=== PATIENT | female | born 1945 | race Caucasian/White ===

== ENCOUNTER 2016-11-27 10:46 | Outpatient (CLI) | payer MEDICARE, OTHER ==
[2016-11-27 11:20] LABS: ALBUMIN/GLOBULIN RATIO 1.5 (1.0-2.2); BILIRUBIN,TOTAL 0.7 mg/dL (0.2-1.0); CALCIUM 9.2 mg/dL (8.5-10.3); CREATININE 0.7 mg/dL (0.4-1.0); POTASSIUM 3.7 mmol/L (3.5-5.0); TOTAL PROTEIN 7.6 g/dL (6.7-8.2)
[2016-11-27 11:25] LABS: EOSINOPHILS # (AUTO) 0.1 10^3/uL (0.0-0.7); EOSINOPHILS % (AUTO) 1.1 %; HCT - HEMATOCRIT 45.4 % (37.0-47.0); HGB - HEMOGLOBIN 15.2 g/dL (12.0-16.0); LYMPHOCYTES # (AUTO) 1.6 10^3/uL (1.5-3.5); MEAN CORPUSCULAR HEMOGLOBIN 30.6 pg (27.0-31.0); MEAN CORPUSCULAR HGB CONC 33.4 g/dL (32.0-36.0); MEAN CORPUSCULAR VOLUME 91.5 fL (81.0-99.0); MEAN PLATELET VOLUME 8.1 fL (7.9-10.8); MONOCYTES # (AUTO) 0.4 10^3/uL (0.0-1.0); MONOCYTES % (AUTO) 8.6 %; NEUTROPHILS # (AUTO) 2.7 10^3/uL (1.5-6.6); NEUTROPHILS % (AUTO) 56.3 %; RED BLOOD COUNT 4.95 10^6/uL (4.20-5.40); UNCORRECTED WHITE BLOOD COUNT 4.8 x10^3/uL; WHITE BLOOD COUNT 4.8 x10^3/uL (4.8-10.8)
== END 2016-11-27 10:47 | disposition home or self-care (01) ==
LOC: LAB 10:46
PROVIDERS: ATTEND Podiatrist Foot & Ankle Surgery
DX: Z01.818 Encounter for other preprocedural examination (principal); T84.21 Breakdown (mechanical) of internal fixation device of other bones
CPT/HCPCS: 36415; 80053; 82465; 85025; 93005

== ENCOUNTER 2016-12-30 08:00 | Outpatient (CLI) | payer MEDICARE, OTHER | END 2016-12-30 23:59 | disposition home or self-care (01) | LOC: LAB.R 08:00 | PROVIDERS: ATTEND Nurse Practitioner Primary Care | DX: N30.00 Acute cystitis without hematuria (principal) | CPT/HCPCS: 87077; 87086 ==

== ENCOUNTER 2017-01-25 11:03 | Outpatient (CLI) | payer MEDICARE, OTHER | END 2017-01-25 11:04 | disposition home or self-care (01) | LOC: LAB 11:03 | PROVIDERS: ATTEND Internal Medicine | DX: N30.00 Acute cystitis without hematuria (principal) | CPT/HCPCS: 87086 ==

== ENCOUNTER 2017-02-09 19:49 | Outpatient (CLI) | payer MEDICARE, OTHER ==
[2017-02-09 18:56] LABS: BILIRUBIN,URINE NEGATIVE (NEGATIVE); PH,URINE 7.5 PH (5.0-7.5)
[2017-02-09 18:57] LABS: UA CHARGE (STRIP ONLY) YES; UR CULTURE IF IND NOT INDICATED
== END 2017-02-09 19:50 | disposition home or self-care (01) ==
LOC: LAB.R 19:49
PROVIDERS: ATTEND Internal Medicine
DX: N30.00 Acute cystitis without hematuria (principal)
CPT/HCPCS: 81001; 81003; 87086

== ENCOUNTER 2017-05-11 14:51 | Outpatient (CLI) | payer MEDICARE, OTHER ==
--- NOTE | 2017-05-12 08:46 | DEXA Report ---
DEXA: 05/11/2017 CLINICAL INDICATION: Postmenopausal. TECHNIQUE: Dual energy x-ray absorptiometry (DXA) was performed on a [employer] system. Regions measured are the AP spine, femoral neck, and, if needed, forearm. COMPARISON: None. In accordance with the International Society for Clinical Densitometry (ISCD) guidelines, data from previous exams may be reanalyzed using current recommendations and techniques. This is done to allow a more accurate basis for comparison with the current study. FINDINGS LUMBAR SPINE DATA: REGION BMD (g/cm/cm) T-SCORE Z-SCORE L1 1.142 0.1 2.2 L2 1.139 -0.5 1.6 L3 1.235 0.3 2.4 L4 1.157 -0.4 1.7 TOTAL L1-L4 1.174 -0.1 2.0 NOTE: All evaluable vertebrae are used for classification. HIP DATA: REGION BMD (g/cm/cm) T-SCORE Z-SCORE Neck 0.925 -0.8 1.1 TOTAL 0.862 -1.2 0.6 NOTE: The femoral neck or total proximal femur, whichever is lowest, is used for classification. IMPRESSION THE WHO CLASSIFICATION BASED ON THE INTERNATIONAL REFERENCE STANDARD: OSTEOPENIA. FRACTURE RISK: INCREASED. RECOMMENDATION: Patients with diagnosis of osteoporosis or osteopenia should have regular bone mineral density assessment. For those eligible for Medicare, routine testing is allowed once every 2 years. Testing frequency can be increased for patients who have rapidly progressing disease or for those who are receiving medical therapy to restore bone mass. COMMENT: World Health Organization (WHO) definitions for osteoporosis and osteopenia: NORMAL BMD: T-score at -1.0 or higher, fracture risk is low. OSTEOPENIA BMD: T-score between -1.0 and -2.5, fracture risk is increased. OSTEOPOROSIS BMD: T-score at -2.5 or lower, fracture risk high. National Osteoporosis Foundation recommends: 1. Obtain adequate dietary calcium (at least 1200 mg per day) and vitamin D (400 -800 international units per day). 2. Participate, as appropriate, in regular weightbearing and muscle- strengthening exercise. 3. Avoid tobacco use and reduce alcohol and caffeine intake. 4. For more detailed information see the website at www.NOF.org. MTDD
== END 2017-05-11 14:52 | disposition home or self-care (01) ==
LOC: DI 14:51
PROVIDERS: ATTEND Physician Assistant Medical
DX: M85.88 Other specified disorders of bone density and structure, other site (principal)
CPT/HCPCS: 77080

== ENCOUNTER 2017-05-11 14:53 | Outpatient (CLI) | payer MEDICARE, OTHER ==
--- NOTE | 2017-05-12 14:12 | Mammography Report ---
DIGITAL SCREENING MAMMOGRAM: 05/11/2017 CLINICAL INDICATION: A 72-year-old nulliparous patient with family history of breast cancer, history of benign biopsies, for screening. COMPARISON: 04/2016, 04/2015, 04/2014, 04/2013, 03/2012, 04/2011. TECHNIQUE: Routine CC and MLO projections were obtained of the breasts. FINDINGS: The breasts again demonstrate heterogeneously dense fibroglandular parenchyma bilaterally. Postbiopsy changes are stable. Coarse and punctate, typically benign calcifications are present. No suspicious masses, clustered microcalcifications, or regions of architectural distortion are identifi ed. IMPRESSION: BENIGN FINDINGS. RECOMMENDATION: ROUTINE ANNUAL SCREENING UNLESS OTHERWISE CLINICALLY INDICATED. BIRADS CATEGORY 2-BENIGN FINDINGS. STANDARD QUALIFYING STATEMENTS 1. This examination was reviewed with the aid of Computer-Aided Detection (CAD). 2. A negative or benign imaging report should not delay biopsy if clinically suspicious findings are present. Consider surgical consultation if warranted. More than 5% of cancers are not identified by i maging. 3. Dense breasts may obscure an underlying neoplasm. JOB #: [id number] EXT JOB #:[id number]
== END 2017-05-11 14:54 | disposition home or self-care (01) ==
LOC: DI 14:53
PROVIDERS: ATTEND Physician Assistant Medical
DX: Z12.31 Encounter for screening mammogram for malignant neoplasm of breast (principal); Z80.3 Family history of malignant neoplasm of breast
CPT/HCPCS: 77067

== ENCOUNTER 2017-11-01 11:10 | Outpatient (CLI) | payer MEDICARE, OTHER | END 2017-11-01 11:11 | disposition home or self-care (01) | LOC: LAB.R 11:10 | PROVIDERS: ATTEND Physician Assistant Medical | DX: N30.00 Acute cystitis without hematuria (principal) | CPT/HCPCS: 87086; 87181 ==

== ENCOUNTER 2017-11-08 10:22 | Outpatient (CLI) | payer MEDICARE, OTHER ==
[2017-11-08 11:40] LABS: BASOPHILS % (AUTO) 0.8 %; EOSINOPHILS # (AUTO) 0.1 10^3/uL (0.0-0.7); EOSINOPHILS % (AUTO) 1.2 %; HGB - HEMOGLOBIN 14.7 g/dL (12.0-16.0); LYMPHOCYTES # (AUTO) 1.6 10^3/uL (1.5-3.5); LYMPHOCYTES % (AUTO) 35.6 %; MEAN CORPUSCULAR HEMOGLOBIN 30.9 pg (27.0-31.0); MEAN PLATELET VOLUME 7.8 fL (7.9-10.8); MONOCYTES # (AUTO) 0.4 10^3/uL (0.0-1.0); MONOCYTES % (AUTO) 8.6 %; NEUTROPHILS # (AUTO) 2.4 10^3/uL (1.5-6.6); NEUTROPHILS % (AUTO) 53.8 %; PLT - PLATELET COUNT 296 10^3/uL (130-450); RED BLOOD COUNT 4.76 10^6/uL (4.20-5.40); RED CELL DISTRIBUTION WIDTH 13.4 % (12.0-15.0); WHITE BLOOD COUNT 4.4 x10^3/uL (4.8-10.8)
[2017-11-08 11:55] LABS: ALBUMIN 4.6 g/dL (3.2-5.5); ALBUMIN/GLOBULIN RATIO 1.5 (1.0-2.2); ALKALINE PHOSPHATASE 44 IU/L (42-121); ALT ALANINE AMINOTRANSFERASE 44 IU/L (10-60); AST ASPARTATE AMINOTRANSFERASE 38 IU/L (10-42); BILIRUBIN,TOTAL 0.8 mg/dL (0.2-1.0); BUN - BLOOD UREA NITROGEN 23 mg/dL (6-20); CARBON DIOXIDE - CO2 28 mmol/L (21-32); CHLORIDE 96 mmol/L (101-111); CHOL/HDL RATIO 2.6 (<4.4); CHOLESTEROL 190 mg/dL; CREATININE 0.5 mg/dL (0.4-1.0); GFR - MDRD 122 (>89); GLUCOSE 89 mg/dL (70-100); HDL CHOLESTEROL 73 mg/dL; LDL CHOLESTEROL,CALCULATED 102 mg/dL; LDL/HDL RATIO 1.4 (<4.4); SODIUM 134 mmol/L (135-145); TOTAL PROTEIN 7.6 g/dL (6.7-8.2); VLDL CHOLESTEROL 15 mg/dL
== END 2017-11-08 10:23 | disposition home or self-care (01) ==
LOC: LAB 10:22
PROVIDERS: ATTEND Physician Assistant Medical
DX: I10 Essential (primary) hypertension (principal); Z79.899 Other long term (current) drug therapy; F41.9 Anxiety disorder, unspecified; E78.2 Mixed hyperlipidemia
CPT/HCPCS: 36415; 80053; 80061; 82306; 83721; 84443; 85025

== ENCOUNTER 2017-11-18 11:06 | Outpatient (CLI) | payer MEDICARE, OTHER ==
[2017-11-18 11:49] LABS: BASOPHILS % (AUTO) 0.2 %; EOSINOPHILS % (AUTO) 0.2 %; HGB - HEMOGLOBIN 13.8 g/dL (12.0-16.0); LYMPHOCYTES # (AUTO) 0.6 10^3/uL (1.5-3.5); LYMPHOCYTES % (AUTO) 5.4 %; MEAN CORPUSCULAR HEMOGLOBIN 31.2 pg (27.0-31.0); MEAN CORPUSCULAR HGB CONC 34.4 g/dL (32.0-36.0); MEAN CORPUSCULAR VOLUME 90.7 fL (81.0-99.0); MEAN PLATELET VOLUME 7.9 fL (7.9-10.8); MONOCYTES # (AUTO) 0.6 10^3/uL (0.0-1.0); MONOCYTES % (AUTO) 5.5 %; NEUTROPHILS # (AUTO) 9.7 10^3/uL (1.5-6.6); NEUTROPHILS % (AUTO) 88.7 %; PLT - PLATELET COUNT 239 10^3/uL (130-450); RED BLOOD COUNT 4.42 10^6/uL (4.20-5.40); RED CELL DISTRIBUTION WIDTH 13.8 % (12.0-15.0); WHITE BLOOD COUNT 10.9 x10^3/uL (4.8-10.8)
[2017-11-18 11:51] LABS: GLUCOSE, URINE (UA) NEGATIVE (NEGATIVE); KETONES,URINE (UA) 15 mg/dL (NEGATIVE); LEUKOCYTE ESTERASE, URINE NEGATIVE (NEGATIVE); NITRITE,URINE NEGATIVE (NEGATIVE); OCCULT BLOOD,URINE NEGATIVE (NEGATIVE); PROTEIN,URINE NEGATIVE (NEGATIVE); UROBILINOGEN,URINE 0.2 (NORMAL) E.U./dL (NORMAL)
[2017-11-18 12:05] LABS: BACTERIA,URINE None Seen /HPF (None Seen); BILIRUBIN,URINE NEGATIVE (NEGATIVE); CLARITY,URINE CLEAR (CLEAR); ICTOTEST,URINE NEGATIVE; RBC,URINE None Seen /HPF (0-5); SQUAMOUS EPITHELIAL CELL,UR RARE Squamous (<= Few)
[2017-11-18 12:08] LABS: ALBUMIN 4.1 g/dL (3.2-5.5); ALBUMIN/GLOBULIN RATIO 1.5 (1.0-2.2); ALKALINE PHOSPHATASE 36 IU/L (42-121); ALT ALANINE AMINOTRANSFERASE 37 IU/L (10-60); AST ASPARTATE AMINOTRANSFERASE 30 IU/L (10-42); BUN - BLOOD UREA NITROGEN 18 mg/dL (6-20); CALCIUM 8.6 mg/dL (8.5-10.3); CARBON DIOXIDE - CO2 27 mmol/L (21-32); CHLORIDE 97 mmol/L (101-111); CK- CREATINE KINASE 46 IU/L (22-269); CREATININE 0.5 mg/dL (0.4-1.0); GFR - MDRD 122 (>89); GLUCOSE 109 mg/dL (70-100); SODIUM 132 mmol/L (135-145); TOTAL PROTEIN 6.8 g/dL (6.7-8.2)
[2017-11-18 12:18] LABS: CRP - C-REACTIVE PROTEIN < 1.0 mg/dL (0-1.0)
== END 2017-11-18 11:07 | disposition home or self-care (01) ==
LOC: LAB.R 11:06
PROVIDERS: ATTEND Physician Assistant Medical
DX: M79.1 Myalgia (principal); N30.00 Acute cystitis without hematuria; Z79.899 Other long term (current) drug therapy
CPT/HCPCS: 80053; 81001; 82550; 83615; 85025; 85651; 86140; 87086

== ENCOUNTER 2017-11-18 12:42 | Outpatient (CLI) | payer MEDICARE, OTHER ==
--- NOTE | 2017-11-18 14:36 | CT Report ---
CT ABDOMEN AND PELVIS WITHOUT CONTRAST: 11/18/2017 CLINICAL INDICATION: Left lower quadrant pain. TECHNIQUE: Axial CT images of the abdomen and pelvis were obtained without intravenous contrast, due to the patient's contrast allergy. Oral contrast was administered. FINDINGS: Limited evaluation of the lung bases demonstrates a patchy left lower lobe infiltrate. No effusion is present. A small hiatal hernia is seen. ABDOMEN: Allowing for the lack of intravenous contrast enhancement, the liver, spleen, pancreas, kidneys and adrenal glands are unremarkable. No bowel dilatation, free gas, or free fluid is present. The gallbladder is nondilated. No abdominal adenopathy is seen. PELVIS: Sigmoid diverticulosis is present, without CT evidence of diverticulitis. No pelvic adenopathy or free fluid is present. Osseous structures demonstrate degenerative changes. IMPRESSION: PATCHY LEFT LOWER LOBE INFILTRATE. DIVERTICULOSIS, WITHOUT CT EVIDENCE OF DIVERTICULITIS. CT DOSE REDUCTION STATEMENT In accordance with CT protocol optimization, one or more of the following dose reduction techniques were utilized for this exam: automated exposure control, adjustment of mA and/or KV based on patient size, or use of iterative reconstructive technique. TD: 11/18/2017 14:28
== END 2017-11-18 12:43 | disposition home or self-care (01) ==
LOC: DI 12:42
PROVIDERS: ATTEND Physician Assistant Medical
DX: K57.32 Diverticulitis of large intestine without perforation or abscess without bleeding (principal); D72.829 Elevated white blood cell count, unspecified; M79.1 Myalgia; N30.00 Acute cystitis without hematuria; Z79.899 Other long term (current) drug therapy
CPT/HCPCS: 74176; 80053; 81001; 82550; 83615; 85025; 85651; 86140; 87086

== ENCOUNTER 2017-12-06 15:29 | Outpatient (CLI) | payer MEDICARE, OTHER ==
--- NOTE | 2017-12-07 22:05 | XRAY Report ---
Procedure Date: 12/06/2017 Accession Number: [id number] / [id number] Procedure: XR - Chest 2 View X-Ray CPT Code: 53396 FULL RESULT: EXAM: CHEST RADIOGRAPHY. EXAM DATE: 12/06/2017 03:45 PM. CLINICAL HISTORY: Community-acquired pneumonia. COMPARISON: None. TECHNIQUE: 2 views. FINDINGS: Lungs/Pleura: No focal opacities evident. No pleural effusion. No pneumothorax. Normal volumes. Mediastinum: Stable cardiac silhouette and previous sternotomy. Sternal wires are intact. Other: None. IMPRESSION: 1. No acute pulmonary process. 2. Previous sternotomy. No cardiac enlargement. RADIA
== END 2017-12-06 15:30 | disposition home or self-care (01) ==
LOC: DI 15:29
PROVIDERS: ATTEND Physician Assistant Medical
DX: J18.9 Pneumonia, unspecified organism (principal)
CPT/HCPCS: 71046

== ENCOUNTER 2018-03-23 08:00 | Outpatient (CLI) | payer MEDICARE, OTHER | END 2018-03-23 08:01 | disposition home or self-care (01) | LOC: LAB.R 08:00 | PROVIDERS: ATTEND Nurse Practitioner Primary Care | DX: N30.00 Acute cystitis without hematuria (principal) | CPT/HCPCS: 81001; 81003; 87077; 87086; 87181 ==

== ENCOUNTER 2018-04-25 09:26 | Outpatient (CLI) | payer MEDICARE, OTHER ==
[2018-04-25 09:58] LABS: BASOPHILS # (AUTO) 0.1 10^3/uL (0.0-0.1); BASOPHILS % (AUTO) 1.4 %; EOSINOPHILS % (AUTO) 1.1 %; HGB - HEMOGLOBIN 14.1 g/dL (12.0-16.0); LYMPHOCYTES # (AUTO) 1.3 10^3/uL (1.5-3.5); LYMPHOCYTES % (AUTO) 32.3 %; MEAN CORPUSCULAR HEMOGLOBIN 31.5 pg (27.0-31.0); MEAN CORPUSCULAR HGB CONC 34.4 g/dL (32.0-36.0); MEAN CORPUSCULAR VOLUME 91.6 fL (81.0-99.0); MEAN PLATELET VOLUME 7.9 fL (7.9-10.8); MONOCYTES # (AUTO) 0.4 10^3/uL (0.0-1.0); MONOCYTES % (AUTO) 10.7 %; NEUTROPHILS # (AUTO) 2.2 10^3/uL (1.5-6.6); NEUTROPHILS % (AUTO) 54.5 %; PLT - PLATELET COUNT 282 10^3/uL (130-450); RED BLOOD COUNT 4.46 10^6/uL (4.20-5.40); RED CELL DISTRIBUTION WIDTH 13.7 % (12.0-15.0); WHITE BLOOD COUNT 4.1 x10^3/uL (4.8-10.8)
[2018-04-25 10:26] LABS: ALBUMIN 4.7 g/dL (3.2-5.5); ALBUMIN/GLOBULIN RATIO 1.7 (1.0-2.2); ALKALINE PHOSPHATASE 46 IU/L (42-121); ALT ALANINE AMINOTRANSFERASE 36 IU/L (10-60); AST ASPARTATE AMINOTRANSFERASE 35 IU/L (10-42); BUN - BLOOD UREA NITROGEN 19 mg/dL (6-20); CARBON DIOXIDE - CO2 28 mmol/L (21-32); CHLORIDE 97 mmol/L (101-111); CHOL/HDL RATIO 2.2 (<4.4); CHOLESTEROL 191 mg/dL; CREATININE 0.6 mg/dL (0.4-1.0); GFR - MDRD 99 (>89); GLUCOSE 111 mg/dL (70-100); HDL CHOLESTEROL 88 mg/dL; LDL CHOLESTEROL,CALCULATED 85 mg/dL; SODIUM 138 mmol/L (135-145); TOTAL PROTEIN 7.5 g/dL (6.7-8.2); VLDL CHOLESTEROL 18 mg/dL
== END 2018-04-25 09:27 | disposition home or self-care (01) ==
LOC: LAB 09:26
PROVIDERS: ATTEND Physician Assistant Medical
DX: F41.8 Other specified anxiety disorders (principal); Z79.899 Other long term (current) drug therapy; I10 Essential (primary) hypertension; E78.2 Mixed hyperlipidemia
CPT/HCPCS: 36415; 80053; 80061; 82306; 83721; 84443; 85025; 86140

== ENCOUNTER 2018-05-05 09:20 | Outpatient (CLI) | payer MEDICARE, OTHER | END 2018-05-05 09:21 | LOC: LAB.R 09:20 | PROVIDERS: ATTEND Physician Assistant Medical | DX: N30.00 Acute cystitis without hematuria (principal) | CPT/HCPCS: 87086 ==

== ENCOUNTER 2018-05-11 10:55 | Outpatient (CLI) | payer MEDICARE, OTHER ==
--- NOTE | 2018-05-13 08:41 | Mammography Report ---
Reason: ANNUAL SCREENING Procedure Date: 05/11/2018 Accession Number: [id number] / [id number] Procedure: SARATH - Screening Mammo Dig Bilat CPT Code: FULL RESULT: EXAM: Screening Mammo Dig Bilat DATE: 05/11/2018 11:25 AM CLINICAL HISTORY: 73 year-old nulliparous female with history of open and percutaneous breast biopsy as well as family history of breast cancer in the mother at age 64 presents for screening. TECHNIQUE: Bilateral CC, laterally exaggerated CC, MLO views were obtained. COMPARISON: 05/11/2017, 05/08/2016, 05/07/2015, 05/05/2014. FINDINGS: The breasts demonstrate heterogeneously dense fibroglandular parenchyma bilaterally. Postsurgical changes in the right breast are stable, typically benign. Coarse typically benign calcifications are seen bilaterally. No suspicious masses, clustered microcalcifications, or regions of architectural distortion are identified. IMPRESSION: Benign findings RECOMMENDATION: Routine annual screening unless otherwise clinically indicated. BIRADS CATEGORY 2: Benign findings STANDARD QUALIFYING STATEMENTS: 1. This examination was not reviewed with the aid of Computer-Aided Detection (CAD). 2. A negative or benign imaging report should not delay biopsy if clinically suspicious findings are present. Consider surgical consultation if warranted. More than 5% of cancers are not identified by imaging. 3. Dense breasts may obscure an underlying neoplasm. 4. This examination was reviewed without the aid of 3D breast imaging (tomosynthesis).
== END 2018-05-11 10:56 | disposition home or self-care (01) ==
LOC: DI 10:55
DX: Z12.31 Encounter for screening mammogram for malignant neoplasm of breast (principal); Z80.3 Family history of malignant neoplasm of breast
CPT/HCPCS: 77067

== ENCOUNTER 2018-05-30 11:43 | Outpatient (CLI) | payer MEDICARE, OTHER ==
--- NOTE | 2018-05-30 14:52 | Ultrasound Report ---
Reason: CYSTITIS,CHRONIC NEC Procedure Date: 05/30/2018 Accession Number: [id number] / [id number] Procedure: US - Retroperitoneal CPT Code: FULL RESULT: EXAM: RENAL ULTRASOUND EXAM DATE: 05/30/2018 01:17 PM. CLINICAL HISTORY: Cystitis, chronic nec. COMPARISON: ABDOMEN/PELVIS W/O 11/18/2017 2:06 PM. TECHNIQUE: Real-time scanning was performed with static images obtained. FINDINGS: Right Kidney: 10.8 cm. Normal echotexture with no stones, contour-deforming masses, or hydronephrosis. There is a question of duplicated proximal right renal collecting system. Left Kidney: 9.7 cm. Normal echotexture with no stones, contour-deforming masses, or hydronephrosis. Bladder: Bilateral jets seen. The prevoid bladder volume was 253 cc. The postvoid bladder volume was 30 cc. Other: None. IMPRESSION: Question duplicated right renal collecting system without hydronephrosis in either moiety. The proximal the extrarenal collecting system including proximal ureters was not visualized. RADIA
== END 2018-05-30 11:44 | disposition home or self-care (01) ==
LOC: DI 11:43
PROVIDERS: ATTEND Physician Assistant Medical
DX: N30.20 Other chronic cystitis without hematuria (principal)
CPT/HCPCS: 76770

== ENCOUNTER 2018-06-06 08:00 | Outpatient (CLI) | payer MEDICARE, OTHER | END 2018-06-06 23:59 | disposition home or self-care (01) | LOC: LAB.R 08:00 | PROVIDERS: ATTEND Nurse Practitioner Primary Care | DX: N30.20 Other chronic cystitis without hematuria (principal) | CPT/HCPCS: 87086; 87181 ==

== ENCOUNTER 2018-08-12 13:25 | Outpatient (CLI) | payer MEDICARE, OTHER ==
--- NOTE | 2018-08-12 17:00 | CARDIAC PROCEDURE NOTE ---
DATE OF SERVICE: 08/12/2018 Physician: Lissette Muñoz MD, [facility] INDICATIONS: CAD, CABG, hypertension, hyperlipidemia. CARDIAC RISK FACTORS: Postmenopausal, hypertension, hyperlipidemia, family history of early heart disease. The patient has known coronary disease and bypass surgery in 2006. PROCEDURE: After signing informed consent, the patient performed a modified Dario protocol exercise treadmill stress test with Echo imaging at rest and at peak heart rate. The patient exercised for 6 minutes and 57 seconds. She achieved a peak heart rate of 136 (91% predicted maximum heart rate for age) and 3.9 METs. The patient had no chest pain or shortness of breath. Resting heart rate: 91. Peak heart rate: 136 (91% PMHR). Resting blood pressure: 144/82. Peak blood pressure: 230/80 (the patient did not take her morning beta sade). RESTING EKG: Normal sinus rhythm, left atrial enlargement, LVH voltage. EKG AT PEAK: No ischemic changes by EKG criteria. SUMMARY 1. Abnormal resting EKG with LVH and abnormal hypertension throughout this test. 2. No ischemic changes by EKG criteria on this exercise stress test at an adequate achieved heart rate. 3. Echo images reported separately. cc: GEN Valdovinos M.D. TD: 08/12/2018 15:31 MTDAdilene
== END 2018-08-12 13:26 | disposition home or self-care (01) ==
LOC: DI 13:25
PROVIDERS: ATTEND Physician Assistant Medical
DX: I25.810 Atherosclerosis of coronary artery bypass graft(s) without angina pectoris (principal); I10 Essential (primary) hypertension; E78.2 Mixed hyperlipidemia; R94.31 Abnormal electrocardiogram [ECG] [EKG]
CPT/HCPCS: 93016; 93017; 93018; 93350; 93351

== ENCOUNTER 2018-08-16 15:22 | Outpatient (CLI) | payer MEDICARE, OTHER ==
[2018-08-16 15:32] LABS: BILIRUBIN,URINE NEGATIVE (NEGATIVE); GLUCOSE, URINE (UA) NEGATIVE (NEGATIVE); KETONES,URINE (UA) NEGATIVE (NEGATIVE); LEUKOCYTE ESTERASE, URINE MODERATE (NEGATIVE); NITRITE,URINE NEGATIVE (NEGATIVE); OCCULT BLOOD,URINE NEGATIVE (NEGATIVE); PROTEIN,URINE NEGATIVE (NEGATIVE); UROBILINOGEN,URINE 0.2 (NORMAL) E.U./dL (NORMAL)
[2018-08-16 15:37] LABS: CLARITY,URINE CLEAR (CLEAR)
[2018-08-16 15:41] LABS: BACTERIA,URINE Rare /HPF (None Seen); RBC,URINE 0-5 /HPF (0-5); SQUAMOUS EPITHELIAL CELL,UR NONE SEEN (<= Few)
== END 2018-08-16 15:23 | disposition home or self-care (01) ==
LOC: LAB 15:22
PROVIDERS: ATTEND Physician Assistant Medical
DX: N30.20 Other chronic cystitis without hematuria (principal)
CPT/HCPCS: 81001; 81003; 87086; 87181

== ENCOUNTER 2018-10-25 16:08 | Outpatient (CLI) | payer MEDICARE, OTHER ==
[2018-10-25 16:27] LABS: BILIRUBIN,URINE NEGATIVE (NEGATIVE); GLUCOSE, URINE (UA) NEGATIVE (NEGATIVE); KETONES,URINE (UA) TRACE mg/dL (NEGATIVE); LEUKOCYTE ESTERASE, URINE NEGATIVE (NEGATIVE); NITRITE,URINE NEGATIVE (NEGATIVE); OCCULT BLOOD,URINE NEGATIVE (NEGATIVE); PH,URINE 5.5 PH (5.0-7.5); PROTEIN,URINE NEGATIVE (NEGATIVE); UROBILINOGEN,URINE 0.2 (NORMAL) E.U./dL (NORMAL)
[2018-10-25 16:28] LABS: CLARITY,URINE CLEAR (CLEAR)
== END 2018-10-25 16:09 | disposition home or self-care (01) ==
LOC: LAB 16:08
PROVIDERS: ATTEND Urology
DX: N39.0 Urinary tract infection, site not specified (principal)
CPT/HCPCS: 81001; 81003; 87086

== ENCOUNTER 2019-01-03 12:06 | Outpatient (CLI) | payer MEDICARE, OTHER ==
[2019-01-03 12:34] LABS: BASOPHILS % (AUTO) 0.9 %; EOSINOPHILS # (AUTO) 0.1 10^3/uL (0.0-0.7); EOSINOPHILS % (AUTO) 1.4 %; HGB - HEMOGLOBIN 14.6 g/dL (12.0-16.0); LYMPHOCYTES # (AUTO) 1.7 10^3/uL (1.5-3.5); LYMPHOCYTES % (AUTO) 39.2 %; MEAN CORPUSCULAR HEMOGLOBIN 30.1 pg (27.0-31.0); MEAN CORPUSCULAR HGB CONC 32.4 g/dL (32.0-36.0); MEAN PLATELET VOLUME 9.8 fL (7.9-10.8); MONOCYTES # (AUTO) 0.5 10^3/uL (0.0-1.0); MONOCYTES % (AUTO) 10.4 %; NEUTROPHILS # (AUTO) 2.1 10^3/uL (1.5-6.6); NEUTROPHILS % (AUTO) 48.1 %; PLT - PLATELET COUNT 276 10^3/uL (130-450); RED BLOOD COUNT 4.85 10^6/uL (4.20-5.40); WHITE BLOOD COUNT 4.4 x10^3/uL (4.8-10.8)
[2019-01-03 12:44] LABS: ALBUMIN 4.4 g/dL (3.2-5.5); ALBUMIN/GLOBULIN RATIO 1.5 (1.0-2.2); BILIRUBIN,TOTAL 0.8 mg/dL (0.2-1.0); CALCIUM 9.3 mg/dL (8.5-10.3); CREATININE 0.6 mg/dL (0.4-1.0); TOTAL PROTEIN 7.3 g/dL (6.7-8.2)
[2019-01-03 12:45] LABS: BILIRUBIN,URINE NEGATIVE (NEGATIVE); GLUCOSE, URINE (UA) NEGATIVE (NEGATIVE); KETONES,URINE (UA) NEGATIVE (NEGATIVE); LEUKOCYTE ESTERASE, URINE NEGATIVE (NEGATIVE); NITRITE,URINE NEGATIVE (NEGATIVE); OCCULT BLOOD,URINE NEGATIVE (NEGATIVE); PH,URINE 5.5 PH (5.0-7.5); PROTEIN,URINE NEGATIVE (NEGATIVE); UROBILINOGEN,URINE 0.2 (NORMAL) E.U./dL (NORMAL)
[2019-01-03 12:52] LABS: CLARITY,URINE CLEAR (CLEAR)
== END 2019-01-03 12:07 | disposition home or self-care (01) ==
LOC: LAB 12:06
PROVIDERS: ATTEND Nurse Practitioner
DX: N30.20 Other chronic cystitis without hematuria (principal); Z79.899 Other long term (current) drug therapy; I25.810 Atherosclerosis of coronary artery bypass graft(s) without angina pectoris; I10 Essential (primary) hypertension
CPT/HCPCS: 36415; 80053; 81001; 81003; 85025; 87086

== ENCOUNTER 2019-01-10 10:07 | Emergency (ER) | payer MEDICARE, OTHER ==
--- NOTE | 2019-01-10 11:39 | XRAY Report ---
Reason: fall, R hand pain Procedure Date: 01/10/2019 Accession Number: [id number] / [id number] Procedure: XR - Hand 3 View RT CPT Code: FULL RESULT: EXAM: RIGHT HAND RADIOGRAPHY EXAM DATE: 01/10/2019 11:11 AM. CLINICAL HISTORY: Fall, right hand pain. Weakness in the right hand and in digits 3 and 4. COMPARISON: None. TECHNIQUE: 3 views. FINDINGS: Bones: No definite fracture is detected. Joints: There is limited evaluation of the carpal rows with the oblique and PA view, questioning alignment of the bases of the metacarpals which is potentially a result of degenerative changes in the triscaphe region. No other definitely traumatic subluxation is detected. Soft Tissues: Normal. No soft tissue swelling. IMPRESSION: Abnormal appearance triscaphe region with possible malalignment of the base of the first metacarpal. While the overall appearance favors degenerative changes, please correlate for point tenderness at the base of the second and third metacarpals, just medial to the base of the thumb. Additional imaging clarification would be accomplished by multiple views of the wrist. RADIA ADDENDUM: 01/10/19 12:00 On review, there is a diaphyseal metacarpal fracture partially seen on the lateral view only, given physical examination presumably of the third ray. This was discussed with Joao Cash at 12 noon.
--- NOTE | 2019-01-10 12:00 | ED Physician Documentation ---
PD HPI UPPER EXT INJURY - Stated complaint Stated Complaint: HAND INJURY - Chief complaint Chief Complaint: Ext Problem - History obtained from History obtained from: Patient - History of Present Illness Location: Right, Hand Type of injury: Fall Where injury occurred: Home Timing - onset: Yesterday Timing - duration: Days (1) Timing - details: Gradual onset Pain level max: 5 Pain level now: 4 Improved by: Rest, Ice, Immobilization Worsened by: Moving, Palpating Associated symptoms: Swelling, Discolored (bruising). No: Weakness, Numbness, Tingling Recently seen: Not recently seen - Additonal information Additional information: pt is right handed Review of Systems Musculoskeletal: denies: Neck pain, Back pain Neurologic: denies: Focal weakness, Numbness, Headache PD PAST MEDICAL HISTORY - Past Medical History Past Medical History: Yes Cardiovascular: Hypertension, High cholesterol, Coronary artery disease - Past Surgical History Past Surgical History: Yes General: Appendectomy Ortho: Other Cardiovascular: CABG HEENT: Tonsil/Adenoidectomy - Present Medications Home Medications: Ambulatory Orders Medication Instructions Recorded Confirmed Niacin [Niaspan] 1,000 mg ORAL DAILY 03/18/14 08/05/15 Propranolol HCl 40 mg PO BID 11/28/14 08/05/15 DULoxetine [Cymbalta] 20 mg PO DAILY 08/05/15 08/05/15 Rosuvastatin Calcium [Crestor] 5 mg PO DAILY 08/05/15 08/05/15 - Allergies Allergies/Adverse Reactions: Allergies Allergy/AdvReac Type Severity Reaction Status Date / Time Sulfa (Sulfonamide Allergy Unknown Verified 08/05/15 12:09 Antibiotics) Iodinated Contrast- Oral and AdvReac Mild Unknown Verified 08/05/15 12:09 IV Dye - Social History Does the pt smoke?: No Smoking Status: Never smoker Does the pt drink ETOH?: No Does the pt have substance abuse?: No - Immunizations Immunizations are current?: Yes - POLST Patient has POLST: No PD ED PE NORMAL - Vitals Vital signs reviewed: Yes - General General: Alert and oriented X 3, No acute distress - HEENT HEENT: Moist mucous membranes - Neck Neck: Supple, no meningeal sign - Derm Derm: Warm and dry - Extremities Extremities: Other (Right hand tender to palpation over the second and third metacarpal. Mild ecchymosis to the dorsum of the hand. No wrist tenderness. No scaphoid tenderness. Neurovascularly intact) - Neuro Neuro: Alert and oriented X 3 - Psych Psych: Normal mood, Normal affect Results - Vitals Vitals: Vital Signs - 24 hr 01/10/19 01/10/19 10:18 12:15 Temperature 36.2 C L 36.8 C Heart Rate 63 59 L Respiratory 18 18 Rate Blood Pressure 166/93 H 139/60 H O2 Saturation 100 100 Oxygen O2 Source Room air - Rads (name of study) Right hand x-ray Radiology: Prelim report reviewed, EMP read contemporaneously, See rad report (On review, there is a diaphyseal metacarpal fracture partially seen on the lateral view only, given physical examination presumably of the third MCP. This was discussed with Joao Cash at 12 noon. ) Procedures - Splint (location) Right hand Splint applied by: Physician, Tech Type of splint: Fiberglass, Short arm Other: Patient tolerated well, No complications, Neurovascular intact PD MEDICAL DECISION MAKING - ED course Complexity details: reviewed results, considered differential, d/w patient ED course: 74-year-old female with a right third metacarpal diaphyseal fracture. Nondisplaced. Placed in a splint for comfort. We will follow-up with orthopedics. She is right-handed. Declines pain medication here or for home. Neurovascularly intact. Patient counseled regarding signs and symptoms for which I believe and urgent re-evaluation would be necessary. Patient with good understanding of and agreement to plan and is comfortable going home at this time This document was made in part using voice recognition software. While efforts are made to proofread this document, sound alike and grammatical errors may occur. Departure - Departure Disposition: 01 Home, Self Care Clinical Impression: Metacarpal bone fracture Qualifiers: Encounter type: initial encounter Metacarpal bone: third Fracture type: closed Metacarpal location: shaft Fracture alignment: nondisplaced Laterality: right Qualified Code(s): S62.352A - Nondisplaced fracture of shaft of third metacarpal bone, right hand, initial encounter for closed fracture Condition: Good Instructions: ED Fx Hand Closed Follow-Up: Shante Graf ARNP, CONSUMER ANALYST-C [Primary Care Provider] - [email or web address] [Provider Group] - Within 1 week Comments: Wear the splint until released by orthopedics. Return if you worsen. Follow-up with orthopedics for further care. You can use Motrin or Tylenol as needed for pain. Discharge Date/Time: 01/10/19 12:23
[2019-01-10 12:16] VITALS: BP 139/60
== END 2019-01-10 12:23 | disposition home or self-care (01) ==
LOC: ED 10:07
DX: S62.352A Nondisplaced fracture of shaft of third metacarpal bone, right hand, initial encounter for closed fracture (principal); W01.0XXA Fall on same level from slipping, tripping and stumbling without subsequent striking against object, initial encounter; Y92.009 Unspecified place in unspecified non-institutional (private) residence as the place of occurrence of the external cause; I10 Essential (primary) hypertension
CPT/HCPCS: 29125; 99283

== ENCOUNTER 2019-04-28 12:16 | Outpatient (CLI) | payer MEDICARE, OTHER ==
[2019-04-28 12:56] LABS: CHOLESTEROL 180 mg/dL; HDL CHOLESTEROL 90 mg/dL; LDL CHOLESTEROL,CALCULATED 77 mg/dL; LDL/HDL RATIO 0.9 (<4.4); VLDL CHOLESTEROL 13 mg/dL
[2019-04-28 13:32] LABS: BASOPHILS % (AUTO) 0.8 %; EOSINOPHILS # (AUTO) 0.1 10^3/uL (0.0-0.7); EOSINOPHILS % (AUTO) 1.2 %; HGB - HEMOGLOBIN 14.7 g/dL (12.0-16.0); LYMPHOCYTES # (AUTO) 1.3 10^3/uL (1.5-3.5); LYMPHOCYTES % (AUTO) 24.7 %; MEAN CORPUSCULAR HEMOGLOBIN 31.3 pg (27.0-31.0); MEAN CORPUSCULAR HGB CONC 33.4 g/dL (32.0-36.0); MEAN CORPUSCULAR VOLUME 93.6 fL (81.0-99.0); MEAN PLATELET VOLUME 10.1 fL (7.9-10.8); MONOCYTES # (AUTO) 0.5 10^3/uL (0.0-1.0); MONOCYTES % (AUTO) 10.5 %; NEUTROPHILS # (AUTO) 3.2 10^3/uL (1.5-6.6); NEUTROPHILS % (AUTO) 62.4 %; PLT - PLATELET COUNT 315 10^3/uL (130-450); RED CELL DISTRIBUTION WIDTH 13.6 % (12.0-15.0); WHITE BLOOD COUNT 5.1 x10^3/uL (4.8-10.8)
[2019-04-28 13:47] LABS: ALBUMIN 4.5 g/dL (3.2-5.5); ALBUMIN/GLOBULIN RATIO 1.5 (1.0-2.2); BILIRUBIN,TOTAL 0.8 mg/dL (0.2-1.0); CALCIUM 9.4 mg/dL (8.5-10.3); CREATININE 0.6 mg/dL (0.4-1.0); TOTAL PROTEIN 7.5 g/dL (6.7-8.2)
== END 2019-04-28 12:17 | disposition home or self-care (01) ==
LOC: LAB 12:16
PROVIDERS: ATTEND Nurse Practitioner
DX: F41.9 Anxiety disorder, unspecified (principal); E78.2 Mixed hyperlipidemia; N30.20 Other chronic cystitis without hematuria; Z79.899 Other long term (current) drug therapy; I25.810 Atherosclerosis of coronary artery bypass graft(s) without angina pectoris; I10 Essential (primary) hypertension
CPT/HCPCS: 36415; 80053; 80061; 83721; 84443; 85025; 87086; 87181

== ENCOUNTER 2019-04-28 12:41 | Outpatient (CLI) | payer MEDICARE, OTHER ==
--- NOTE | 2019-05-01 08:40 | Mammography Report ---
Reason: SCREENING MAMMO Procedure Date: 04/28/2019 Accession Number: [id number] / [id number] Procedure: SARATH - Screening Mammo w/Cosme CPT Code: Final Report FULL RESULT: EXAM: Screening Mammo w/Cosme DATE: 04/28/2019 1:50 PM CLINICAL HISTORY: Routine screening. No reported personal history of breast cancer; history of bilateral excisional biopsies. Family history breast cancer mother age 62. TECHNIQUE: (B) - Bilateral CC and MLO views were obtained. COMPARISON: 05/11/2018 through 04/21/2011. PARENCHYMAL PATTERN: (A) - The breasts demonstrate scattered fibroglandular densities bilaterally. FINDINGS: Right breast: There are stable excisional biopsy changes upper outer breast. No suspicious masses, calcifications or areas of nonoperative distortion. Left breast: There is a 19 mm asymmetry in the posterior 9:00 breast 9.5 cm from the nipple seen best on 3-D imaging. Stable excisional biopsy changes noted from the posterior 3:00 breast. No suspicious calcifications. IMPRESSION: Right breast: Benign. BI-RADS Category 2. Recommend annual screening mammography. Left breast: 19 mm asymmetry posterior 9:00 breast as detailed. Incomplete examination. BI-RADS category 0. Additional imaging and ultrasound recommended. RECOMMENDATION: (AD[facility]U) - Additional views using both Mammography and Ultrasound recommended. BI-RADS CATEGORY: (0) - Incomplete Examination - need additional evaluation. STANDARD QUALIFYING STATEMENTS: 1. This examination was not reviewed with the aid of Computer-Aided Detection (CAD). 2. A negative or benign imaging report should not preclude biopsy if clinically suspicious findings are present. 3. Dense breasts may obscure an underlying neoplasm. 4. This examination was reviewed with the aid of 3D breast imaging (tomosynthesis).
== END 2019-04-28 12:42 | disposition home or self-care (01) ==
LOC: DI 12:41
DX: Z12.31 Encounter for screening mammogram for malignant neoplasm of breast (principal); R92.8 Other abnormal and inconclusive findings on diagnostic imaging of breast; Z80.3 Family history of malignant neoplasm of breast
CPT/HCPCS: 77063; 77067

== ENCOUNTER 2019-05-05 07:51 | Outpatient (CLI) | payer MEDICARE, OTHER ==
--- NOTE | 2019-05-05 10:01 | Mammography Report ---
Reason: ABN MAMMO - SPEC VIEWS LT Procedure Date: 05/05/2019 Accession Number: [id number] / [id number] Procedure: SARATH - Diag Special Views Dig LT CPT Code: Final Report FULL RESULT: EXAM: Diag Special Views Dig LT, Breast Unilateral Limited DATE: 05/05/2019 8:33 AM CLINICAL HISTORY: Recall from screening for asymmetry seen lateral left breast. History of bilateral excisional biopsies. Family history breast cancer mother age 62. TECHNIQUE: (L) - Left CC and ML views were obtained. Real-time ultrasound performed of the lateral and upper outer quadrant by both the technologist and the radiologist. COMPARISON: 04/28/2019 through 05/08/2016. PARENCHYMAL PATTERN: (D) - The breasts demonstrate heterogeneously dense fibroglandular parenchyma bilaterally. FINDINGS: Left breast: Finding recalled from screening in the lateral breast does not persist on additional views consistent with summation of normal tissues. Stable excisional biopsy changes are noted medially. There are no suspicious masses, calcifications, or areas of nonoperative distortion. Targeted ultrasound of the lateral breast and upper outer quadrant is performed to exclude underlying sonographic abnormalities. Wide area is scanned and only normal tissues are noted. IMPRESSION: Left breast: Finding recalled from screening consistent with summation of normal tissues. Benign findings. BI-RADS category 2. Recommend return to annual screening mammography. RECOMMENDATION: (ANNUAL) - Recommend routine annual screening mammography. BI-RADS CATEGORY: STANDARD QUALIFYING STATEMENTS: 1. This examination was not reviewed with the aid of Computer-Aided Detection (CAD). 2. A negative or benign imaging report should not preclude biopsy if clinically suspicious findings are present. 3. Dense breasts may obscure an underlying neoplasm. 4. This examination was reviewed with the aid of 3D breast imaging (tomosynthesis).
== END 2019-05-05 07:52 | disposition home or self-care (01) ==
LOC: DI 07:51
PROVIDERS: ATTEND Nurse Practitioner
DX: R92.8 Other abnormal and inconclusive findings on diagnostic imaging of breast (principal)
CPT/HCPCS: 76642

== ENCOUNTER 2019-11-16 01:46 | Emergency (ER) | payer MEDICARE, OTHER ==
[2019-11-16 02:09] VITALS: BP 125/80
--- NOTE | 2019-11-16 02:11 | ED Physician Documentation ---
PD HPI UPPER EXT INJURY - Stated complaint Stated Complaint: FINGER LAC - Chief complaint Chief Complaint: Laceration - History obtained from History obtained from: Patient - History of Present Illness Location: Left, Finger Type of injury: Laceration Where injury occurred: Home Timing - onset: Enter time (16:30) Timing - details: Abrupt onset Associated symptoms: No: Weakness, Numbness, Tingling, Swelling, Discolored Contributing factors: No: Anticoagulated (takes 81mg asa qd) Similar symptoms before: Has not had sx before Recently seen: Not recently seen - Additonal information Additional information: while preparing food yesterday afternoon, patient cut her left middle finger with a knife. patient is right hand dominant. she presents due to ongoing bleeding despite using ice, applying pressure, and raising the hand above her head Review of Systems Skin: reports: Laceration (s) PD PAST MEDICAL HISTORY - Past Medical History Cardiovascular: Hypertension, High cholesterol, Coronary artery disease - Past Surgical History Past Surgical History: Yes General: Appendectomy Ortho: Other Cardiovascular: CABG HEENT: Tonsil/Adenoidectomy - Present Medications Home Medications: Ambulatory Orders Medication Instructions Recorded Confirmed Niacin [Niaspan] 1,000 mg ORAL DAILY 03/18/14 08/05/15 Propranolol HCl 40 mg PO BID 11/28/14 08/05/15 DULoxetine [Cymbalta] 20 mg PO DAILY 08/05/15 08/05/15 Rosuvastatin Calcium [Crestor] 5 mg PO DAILY 08/05/15 08/05/15 - Allergies Allergies/Adverse Reactions: Allergies Allergy/AdvReac Type Severity Reaction Status Date / Time Sulfa (Sulfonamide Allergy Unknown Verified 11/16/19 02:09 Antibiotics) Iodinated Contrast Media AdvReac Mild Unknown Verified 11/16/19 02:09 - Social History Does the pt smoke?: No Smoking Status: Never smoker Does the pt drink ETOH?: No Does the pt have substance abuse?: No - Immunizations Immunizations are current?: Yes - POLST Patient has POLST: No PD ED PE NORMAL - Vitals Vital signs reviewed: Yes - General General: Alert and oriented X 3, No acute distress, Well developed/nourished - Derm Derm: Normal color, Warm and dry - Extremities Extremities: No tenderness to palpate, Normal ROM s pain, No edema - Neuro Neuro: No motor deficit (FROM and strength left 3rd digit flexion and extension including with isolation of pip, dip, mcp joints ), No sensory deficit PD ED PE EXPANDED - Extremities JUANITA UE/Hands Visual: 1 - laceration (flap laceration with slow, steady oozing (nonpulsatile bleeding)) Results - Vitals Vitals: Vital Signs - 24 hr 11/16/19 01:50 Temperature 36 C L Heart Rate 68 Respiratory 16 Rate Blood Pressure 125/80 O2 Saturation 100 Oxygen O2 Source Room air Procedures - Laceration (location) Finger left Length in cm: 1.5 Wound type: Flap Neurovascular status: Sensory intact, Motor intact, Vascular intact Tendon involvement: Tendon intact Skin layer closure: Dermabond Other: Patient tolerated well, Tetanus UTD Complexity: Simple PD MEDICAL DECISION MAKING - ED course Complexity details: considered differential, d/w patient ED course: bevelled flap laceration with edges that are too thin to benefit from sutures. bleeding was steady and thus finger tourniquet placed with excellent hemostasis. chemical cautery used on one of the bleeding sites (other bleeding was from area that was too close to the pedicle of the flap; cautery would pose risk to compromising integrity of the pedicles blood supply to the flap being repaired). the flap was then reapproximated with dermabond and then wrapped with large steristrip. finally, gelfoam was placed on top of the wound and the finger was wrapped with coban. recheck 20 minutes later showed no blood on the dressing. Departure - Departure Disposition: 01 Home, Self Care Clinical Impression: Finger laceration Qualifiers: Encounter type: initial encounter Finger: middle finger Damage to nail status: without damage Foreign body presence: without foreign body Laterality: left Qualified Code(s): S61.213A - Laceration without foreign body of left middle finger without damage to nail, initial encounter Condition: Good Instructions: ED Laceration Ext Skin Glue Follow-Up: Shante Graf ARNP, HEALTHCARE SOCIAL WORKER-C [Primary Care Provider] - (3-5 days for reevaluation of the injury ) Discharge Date/Time: 11/16/19 04:07
[2019-11-16] MEDS ORDERED: TRANEXAMIC ACID 1,000 MG/10 ML VIAL NAS STA (02:27)
== END 2019-11-16 04:07 | disposition home or self-care (01) ==
LOC: ED 01:46
DX: S61.213A Laceration without foreign body of left middle finger without damage to nail, initial encounter (principal); W26.0XXA Contact with knife, initial encounter; W45.8XXA Other foreign body or object entering through skin, initial encounter; Y93.G1 Activity, food preparation and clean up; Y92.009 Unspecified place in unspecified non-institutional (private) residence as the place of occurrence of the external cause; I10 Essential (primary) hypertension
CPT/HCPCS: 12001; 99282; 99283

== ENCOUNTER 2020-04-01 10:40 | Outpatient (CLI) | payer MEDICARE, OTHER ==
[2020-04-05 13:45] LABS: SODIUM 139 mmol/L (135-145)
[2020-04-05 13:46] LABS: AST ASPARTATE AMINOTRANSFERASE 39 IU/L (10-42); BILIRUBIN,TOTAL 0.5 mg/dL (0.2-1.0); BUN - BLOOD UREA NITROGEN 25 mg/dL (6-20); CALCIUM 9.6 mg/dL (8.5-10.3); CARBON DIOXIDE - CO2 29 mmol/L (21-32); CHLORIDE 102 mmol/L (101-111); CREATININE 0.5 mg/dL (0.4-1.0); GLUCOSE 97 mg/dL (70-100)
[2020-04-05 13:47] LABS: ALBUMIN 4.5 g/dL (3.2-5.5); ALBUMIN/GLOBULIN RATIO 1.5 (1.0-2.2); ALKALINE PHOSPHATASE 46 IU/L (42-121); ALT ALANINE AMINOTRANSFERASE 47 IU/L (10-60); CHOL/HDL RATIO 2.3 (<4.4); CHOLESTEROL 199 mg/dL; HDL CHOLESTEROL 86 mg/dL; LDL CHOLESTEROL,CALCULATED 97 mg/dL; LDL/HDL RATIO 1.1 (<4.4); TOTAL PROTEIN 7.6 g/dL (6.7-8.2); VLDL CHOLESTEROL 16 mg/dL
[2020-04-05 13:49] LABS: HGB - HEMOGLOBIN 15.1 g/dL (12.0-16.0); MEAN CORPUSCULAR HEMOGLOBIN 30.4 pg (27.0-31.0); MEAN CORPUSCULAR HGB CONC 32.8 g/dL (32.0-36.0); MEAN CORPUSCULAR VOLUME 92.8 fL (81.0-99.0); MEAN PLATELET VOLUME 9.9 fL (7.9-10.8); PLT - PLATELET COUNT 320 10^3/uL (130-450); RED BLOOD COUNT 4.97 10^6/uL (4.20-5.40); RED CELL DISTRIBUTION WIDTH 13.8 % (12.0-15.0); WHITE BLOOD COUNT 5.5 x10^3/uL (4.8-10.8)
[2020-04-05 13:50] LABS: BASOPHILS % (AUTO) 0.7 %; EOSINOPHILS # (AUTO) 0.1 10^3/uL (0.0-0.7); EOSINOPHILS % (AUTO) 1.1 %; LYMPHOCYTES # (AUTO) 1.5 10^3/uL (1.5-3.5); LYMPHOCYTES % (AUTO) 27.1 %; MONOCYTES # (AUTO) 0.5 10^3/uL (0.0-1.0); MONOCYTES % (AUTO) 8.2 %; NEUTROPHILS # (AUTO) 3.4 10^3/uL (1.5-6.6); NEUTROPHILS % (AUTO) 62.5 %
== END 2020-04-01 10:41 | disposition home or self-care (01) ==
LOC: LAB 10:40
PROVIDERS: ATTEND Nurse Practitioner
DX: I10 Essential (primary) hypertension (principal)
CPT/HCPCS: 36415; 80053; 80061; 83721; 84443; 85025

== ENCOUNTER 2020-04-01 13:15 | Outpatient (CLI) | payer MEDICARE, OTHER ==
[2020-04-01 18:01] LABS: BASOPHILS % (AUTO) 0.7 %; EOSINOPHILS # (AUTO) 0.1 10^3/uL (0.0-0.7); EOSINOPHILS % (AUTO) 1.1 %; HGB - HEMOGLOBIN 15.1 g/dL (12.0-16.0); LYMPHOCYTES # (AUTO) 1.5 10^3/uL (1.5-3.5); LYMPHOCYTES % (AUTO) 27.1 %; MEAN CORPUSCULAR HEMOGLOBIN 30.4 pg (27.0-31.0); MEAN CORPUSCULAR HGB CONC 32.8 g/dL (32.0-36.0); MEAN CORPUSCULAR VOLUME 92.8 fL (81.0-99.0); MEAN PLATELET VOLUME 9.9 fL (7.9-10.8); MONOCYTES # (AUTO) 0.5 10^3/uL (0.0-1.0); MONOCYTES % (AUTO) 8.2 %; NEUTROPHILS # (AUTO) 3.4 10^3/uL (1.5-6.6); NEUTROPHILS % (AUTO) 62.5 %; PLT - PLATELET COUNT 320 10^3/uL (130-450); RED BLOOD COUNT 4.97 10^6/uL (4.20-5.40); RED CELL DISTRIBUTION WIDTH 13.8 % (12.0-15.0); WHITE BLOOD COUNT 5.5 x10^3/uL (4.8-10.8)
[2020-04-01 18:22] LABS: ALBUMIN 4.5 g/dL (3.2-5.5); ALBUMIN/GLOBULIN RATIO 1.5 (1.0-2.2); ALKALINE PHOSPHATASE 46 IU/L (42-121); ALT ALANINE AMINOTRANSFERASE 47 IU/L (10-60); AST ASPARTATE AMINOTRANSFERASE 39 IU/L (10-42); BILIRUBIN,TOTAL 0.5 mg/dL (0.2-1.0); BUN - BLOOD UREA NITROGEN 25 mg/dL (6-20); CALCIUM 9.6 mg/dL (8.5-10.3); CARBON DIOXIDE - CO2 29 mmol/L (21-32); CHLORIDE 102 mmol/L (101-111); CHOL/HDL RATIO 2.3 (<4.4); CHOLESTEROL 199 mg/dL; CREATININE 0.5 mg/dL (0.4-1.0); GLUCOSE 97 mg/dL (70-100); HDL CHOLESTEROL 86 mg/dL; LDL CHOLESTEROL,CALCULATED 97 mg/dL; LDL/HDL RATIO 1.1 (<4.4); SODIUM 139 mmol/L (135-145); TOTAL PROTEIN 7.6 g/dL (6.7-8.2); VLDL CHOLESTEROL 16 mg/dL
== END 2020-04-01 13:16 | disposition home or self-care (01) ==
LOC: DI.N 13:15
PROVIDERS: ATTEND Nurse Practitioner
DX: Z12.31 Encounter for screening mammogram for malignant neoplasm of breast (principal); I10 Essential (primary) hypertension
CPT/HCPCS: 36415; 77063; 77067; 80053; 80061; 83721; 84443; 85025

== ENCOUNTER 2020-07-10 10:07 | Outpatient (CLI) | payer MEDICARE, OTHER | END 2020-07-10 10:08 | disposition critical access hospital (66) | LOC: EMS 10:07 | PROVIDERS: ATTEND Surgery | DX: R42 Dizziness and giddiness (principal); R11.2 Nausea with vomiting, unspecified | CPT/HCPCS: A0425; A0429 ==

== ENCOUNTER 2020-07-10 10:12 | Observation (INO) | payer MEDICARE, OTHER ==
[2020-07-10] MEDS ORDERED: SODIUM CHLORIDE 0.9% 1,000 ML IV STA ×3 (10:27→17:28)
[2020-07-10] MEDS ORDERED: MECLIZINE 12.5 MG TABLET PO STA (10:27)
[2020-07-10] MEDS ORDERED: ONDANSETRON 4 MG/2 ML VIAL IVP STA ×2 (10:28→13:35)
[2020-07-10 10:42] LABS: BASOPHILS % (AUTO) 0.3 %; EOSINOPHILS % (AUTO) 0.4 %; HGB - HEMOGLOBIN 15.5 g/dL (12.0-16.0); LYMPHOCYTES # (AUTO) 0.6 10^3/uL (1.5-3.5); LYMPHOCYTES % (AUTO) 9.1 %; MEAN CORPUSCULAR HEMOGLOBIN 30.7 pg (27.0-31.0); MEAN CORPUSCULAR HGB CONC 35.4 g/dL (32.0-36.0); MEAN CORPUSCULAR VOLUME 86.7 fL (81.0-99.0); MEAN PLATELET VOLUME 9.4 fL (7.9-10.8); MONOCYTES # (AUTO) 0.2 10^3/uL (0.0-1.0); MONOCYTES % (AUTO) 3.6 %; NEUTROPHILS # (AUTO) 5.8 10^3/uL (1.5-6.6); NEUTROPHILS % (AUTO) 86.3 %; PLT - PLATELET COUNT 253 10^3/uL (130-450); RED BLOOD COUNT 5.05 10^6/uL (4.20-5.40); RED CELL DISTRIBUTION WIDTH 12.9 % (12.0-15.0); WHITE BLOOD COUNT 6.7 x10^3/uL (4.8-10.8)
[2020-07-10 10:56] LABS: ALBUMIN 5.2 g/dL (3.2-5.5); ALBUMIN/GLOBULIN RATIO 1.6 (1.0-2.2); BILIRUBIN,TOTAL 1.3 mg/dL (0.2-1.0); CALCIUM 9.8 mg/dL (8.5-10.3); CREATININE 0.6 mg/dL (0.4-1.0); TOTAL PROTEIN 8.4 g/dL (6.7-8.2)
[2020-07-10] MEDS ORDERED: POTASSIUM CHLORIDE 20 MEQ TABLET PO STA ×2 (10:57→16:38)
[2020-07-10] MEDS ORDERED: POTASSIUM CHLOR 10 MEQ/100 ML 10 MEQ/100 ML BAG IV ONE ×2 (10:58→13:36)
[2020-07-10] MEDS ORDERED: POTASSIUM CHLORIDE 20 MEQ/15 ML UDC PO STA (11:45)
[2020-07-10 11:48] LABS: BILIRUBIN,URINE NEGATIVE (NEGATIVE); CLARITY,URINE SL. CLOUDY (CLEAR); GLUCOSE, URINE (UA) NEGATIVE (NEGATIVE); KETONES,URINE (UA) >=80 mg/dL (NEGATIVE); LEUKOCYTE ESTERASE, URINE NEGATIVE (NEGATIVE); NITRITE,URINE NEGATIVE (NEGATIVE); OCCULT BLOOD,URINE TRACE-INTA (NEGATIVE); PH,URINE 6.5 PH (5.0-7.5); PROTEIN,URINE 30 mg/dL (NEGATIVE); UROBILINOGEN,URINE 0.2 (NORMAL) E.U./dL (NORMAL)
[2020-07-10 11:56] LABS: BACTERIA,URINE Moderate /HPF (None Seen); RBC,URINE 0-5 /HPF (0-5); SQUAMOUS EPITHELIAL CELL,UR FEW Squamous (<= Few)
--- NOTE | 2020-07-10 13:07 | ED Physician Documentation ---
PD HPI NVD - Stated complaint Stated Complaint: N/V - Chief complaint Chief Complaint: General - History obtained from History obtained from: Patient - History of Present Illness Timing - onset: Yesterday Timing - duration: Days (1) Timing - details: Gradual onset, Still present Associated symptoms: Other (dizziness and nausea). No: Fever, Abdominal pain, Chest pain, Hematemesis, Melena Contributing factors: Other (The patient has a history of Mnire's disease) Improved by: Laying still, Vomiting Worsened by: Moving, Position Similar symptoms before: Diagnosis (meneieg) - Additonal information Additional information: 75-year-old female with a history of Mnire's disease has an exacerbation of her symptoms with acute dizziness nausea and vomiting she has been vomiting for 2 days feels very dehydrated and is having difficulty standing. She has had some hearing loss in the right ear and she denies any current increase in hearing loss. Review of Systems Constitutional: denies: Fever Eyes: reports: Other (opening eyes causes dizziness). denies: Decreased vision Ears: reports: Loss of hearing (in the right pre-existing). denies: Ear pain Nose: denies: Rhinorrhea / runny nose, Congestion Throat: denies: Sore throat Respiratory: denies: Cough GI: reports: Nausea, Vomiting. denies: Abdominal Pain, Abdominal Swelling : denies: Dysuria, Frequency Skin: denies: Rash Musculoskeletal: denies: Neck pain, Back pain, Extremity pain PD PAST MEDICAL HISTORY - Past Medical History Cardiovascular: Hypertension, High cholesterol, Coronary artery disease - Past Surgical History Past Surgical History: Yes General: Appendectomy Ortho: Other Cardiovascular: CABG HEENT: Tonsil/Adenoidectomy - Present Medications Home Medications: Ambulatory Orders Medication Instructions Recorded Confirmed Propranolol HCl 40 mg PO BID 11/28/14 07/10/20 Rosuvastatin Calcium [Crestor] 10 mg PO DAILY 08/05/15 07/10/20 Meclizine HCl [Antivert] 25 mg PO Q6H PRN #30 tablet 07/10/20 Ondansetron Odt [Zofran] 4 mg TL Q6H PRN #10 tablet 07/10/20 Potassium Chloride 20 meq PO BID #14 tablet.er 07/10/20 - Allergies Allergies/Adverse Reactions: Allergies Allergy/AdvReac Type Severity Reaction Status Date / Time Sulfa (Sulfonamide Allergy Unknown Verified 11/16/19 02:09 Antibiotics) Iodinated Contrast Media AdvReac Mild Unknown Verified 07/10/20 10:38 - Social History Does the pt smoke?: No Smoking Status: Never smoker Does the pt drink ETOH?: No Does the pt have substance abuse?: No Substance Use and Type: CBD oil / Products - Immunizations Immunizations are current?: Yes - POLST Patient has POLST: No PD ED PE NORMAL - Vitals Vital signs reviewed: Yes (hypertensive ) - General General: Alert and oriented X 3, Well developed/nourished, Other (clutching an emesis bag with eyes closed) - HEENT HEENT: Atraumatic, PERRL, EOMI, Ears normal, Other (There are 3 beats of nystagmus bilaterally ) - Neck Neck: Supple, no meningeal sign, No bony TTP - Cardiac Cardiac: RRR, No murmur - Respiratory Respiratory: No respiratory distress, Clear bilaterally - Abdomen Abdomen: Soft, Non tender - Back Back: No CVA TTP, No spinal TTP - Derm Derm: Normal color, Warm and dry, No rash - Extremities Extremities: No deformity, No edema - Neuro Neuro: Alert and oriented X 3, criminalist technician 2-12 intact, No motor deficit, No sensory deficit, Normal speech Eye Opening: To Voice Motor: Obeys Commands Verbal: Oriented GCS Score: 14 - Psych Psych: Normal mood, Normal affect Results - Vitals Vitals: Vital Signs - 24 hr 07/10/20 07/10/20 07/10/20 10:13 10:31 11:22 Temperature 36.6 C Heart Rate 92 92 92 Respiratory 16 16 14 Rate Blood Pressure 128/111 H 155/89 H 158/72 H O2 Saturation 100 100 100 07/10/20 07/10/20 07/10/20 12:12 13:23 13:26 Temperature 37.4 C Heart Rate 97 96 Respiratory 20 16 Rate Blood Pressure 148/100 H 134/73 H O2 Saturation 100 100 07/10/20 07/10/20 14:35 15:00 Temperature Heart Rate 99 97 Respiratory 15 17 Rate Blood Pressure 152/71 H 152/77 H O2 Saturation 100 100 Oxygen O2 Source Room air - Labs Labs: Laboratory Tests 07/10/20 07/10/20 07/10/20 10:30 10:30 11:35 WBC 6.7 RBC 5.05 Hgb 15.5 Hct 43.8 MCV 86.7 MCH 30.7 MCHC 35.4 RDW 12.9 Plt Count 253 MPV 9.4 Neut # (Auto) 5.8 Lymph # (Auto) 0.6 L Anson # (Auto) 0.2 Eos # (Auto) 0.0 Baso # (Auto) 0.0 Absolute Nucleated RBC 0.00 Nucleated RBC % 0.0 Sodium 131 L Potassium 2.2 L* Chloride 81 L Carbon Dioxide 25 Anion Gap 25.0 H BUN 9 Creatinine 0.6 Estimated GFR (MDRD) 98 Glucose 146 H Calcium 9.8 Total Bilirubin 1.3 H AST 46 H ALT 52 Alkaline Phosphatase 47 Total Protein 8.4 H Albumin 5.2 Globulin 3.2 Albumin/Globulin Ratio 1.6 Lipase 43 Urine Color LIGHT YELLOW Urine Clarity SL. CLOUDY Urine pH 6.5 Ur Specific [place] 1.020 Urine Protein 30 H Urine Glucose (UA) NEGATIVE Urine Ketones >=80 H Urine Occult Blood TRACE-INTA Urine Nitrite NEGATIVE Urine Bilirubin NEGATIVE Urine Urobilinogen 0.2 (NORMAL) Ur Leukocyte Esterase NEGATIVE Urine RBC 0-5 Urine WBC 0-3 Ur Squamous Epith Cells FEW Squamous Urine Bacteria Moderate H Ur Microscopic Review INDICATED Urine Culture Comments INDICATED - Rads (name of study) CT head Radiology: Prelim report reviewed (Impression: Negative head CT for patient age. No evidence of acute stroke, hemorrhage, or mass.), EMP read indepedently, See rad report PD MEDICAL DECISION MAKING - ED course Complexity details: reviewed old records, reviewed results, re-evaluated patient, considered differential, d/w patient ED course: 75-year-old female with a history of Mnire's is come into the emergency department today with dizziness and vomiting that she has had since 2 days ago. She readily welcomes the Vesely she is given some IV saline her potassium is found to be 2.2 and she is given both oral and IV potassium. She continues to be nauseous and dizzy and she is given a second round of both potassium and saline as well as some dexamethasone and more Zofran. Despite additional antiemetic and fluid the patient still feels weak and dizzy and unable to walk. She continues to have nausea.She has failed a road test here in the emergency department and I am asking our hospitalist to place patient in observation. Departure - Departure Disposition: ED Place in Observation Clinical Impression: Dehydration, Hypokalemia Mnire's disease, active Qualifiers: Laterality: unspecified laterality Qualified Code(s): H81.09 - Meniere's disease, unspecified ear Condition: Stable Instructions: Meniere Disease, ED Dehydration, ED Potassium Deficiency Follow-Up: Shante Graf ARNP, CAISSON WORKER-C [Primary Care Provider] - Prescriptions: Meclizine HCl [Antivert] 25 mg PO Q6H PRN #30 tablet PRN Reason: Dizziness Potassium Chloride 20 meq PO BID #14 tablet.er Ondansetron Odt [Zofran] 4 mg TL Q6H PRN #10 tablet PRN Reason: Nausea / Vomiting
[2020-07-10] MEDS ORDERED: DEXAMETHASONE 10 MG/ML VIAL IVP STA (13:35)
--- NOTE | 2020-07-10 16:28 | CT Report ---
PROCEDURE: HEAD WO INDICATIONS: intractable dizziness TECHNIQUE: Noncontrast 4.5 mm thick angled axial sections acquired from the foramen magnum to the vertex. For r adiation dose reduction, the following was used: automated exposure control, adjustment of mA and/or kV according to patient size. COMPARISON: None. FINDINGS: Image quality: Excellent. CSF spaces: Basal cisterns are patent. No extra-axial fluid collections. Ventricles are normal in size and shape. Brain: No midline shift. No intracranial masses or hemorrhage. [place]-white matter interface is norm al. Skull and face: Calvarium and visualized facial bones are intact, without suspicious lesions. Sinuses: Visualized sinuses and mastoids are clear. IMPRESSION: Negative head CT for patient age. No evidence acute stroke, hemorrhage, or mass. Reviewed by: Iftikhar Mendoza MD on 07/10/2020 4:27 PM [facility] Approved by: Iftikhar Mendoza MD on 07/10/2020 4:27 PM [facility] Station ID: [id number]
[2020-07-10] MEDS ORDERED: SODIUM CHLORIDE FLUSH 0.9% 10 ML SYRINGE IVP PRN (16:40)
[2020-07-10] MEDS ORDERED: ACETAMINOPHEN 325 MG TABLET PO PRN (16:40)
[2020-07-10] MEDS ORDERED: ONDANSETRON 4 MG/2 ML VIAL IVP PRN (16:40)
--- NOTE | 2020-07-10 16:58 | HISTORY & PHYSICAL EXAMINATION ---
Chief Complaint - Chief Complaint Chief Complaint: vertigo History of Present Illness - Admitted From Admitted From:: ER - History Obtained From Records Reviewed: [facility] History obtained from: pt - History of Present Illness HPI Comment/Other: 75-year-old female with a history of Mnire's disease, and HTN, HLD who present ER complain of Nausea, vomiting, dizziness and Generalized Weakness.Pt reports that she has a hx of menieres disease. pt Reports she nausea and vomiting since yesterday afternoon. Pt arrived by BLS ambulance. She denies fever, shortness of breathing, abdominal pain. She also denies hearing loss. Patient reported she had twice Mnire's disease exacerbation one was 8 years ago, second was 2 years ago. Patient report betahistine was very good control of her symptoms. Unfortunately this meds was not proved by [facility] FDA. Routine laboratory tests that show patient had a potassium of 2.2. CT of the head was unremarkable for acute findings. Patient was treated by in ER. she is given IVF of normal saline, potassium of both oral and IV potassium, and antivert, and antiemesis. Despite additional mediations was given to the patient, but she still feels weak and dizzy and unable to walk, and uncontrolled nausea and vomiting. She also failed a road test here in the emergency department. Given pt's above medical conditions, our hospitalist was consulted for admission in observation unit. Discussed the care goal with the patient, patient requested DNR. History - Past Medical History Cardiovascular: reports: Hypertension, High cholesterol, Coronary artery disease MRSA Hx?: Yes - Past Surgical History General: reports: Appendectomy Ortho: reports: Other Cardiovascular: reports: CABG HEENT: reports: Tonsil/Adenoidectomy - Family & Social History Family History: Mother: , Father: Family History Comment/Other: Patient reported his father at age 72 from CAD and prostate cancer metastases. Her mother at age 62 from breast Cancer. Social History Notes: Patient reported she quit cigarette smoking in 1989, She denies alcohol or drug use. She is window, She has no children, she live at [facility] - POLST Patient has POLST: No Meds/Allgy - Home Medications Home Medications: Ambulatory Orders Medication Instructions Recorded Confirmed Propranolol HCl 40 mg PO BID 11/28/14 07/10/20 Rosuvastatin Calcium [Crestor] 10 mg PO DAILY 08/05/15 07/10/20 ALPRAZolam [Alprazolam] 0.5 mg PO DAILY PRN 07/10/20 Meclizine HCl [Antivert] 25 mg PO Q6H PRN #30 tablet 07/10/20 Ondansetron Odt [Zofran] 4 mg TL Q6H PRN #10 tablet 07/10/20 Potassium Chloride 20 meq PO BID #14 tablet.er 07/10/20 Primidone [Mysoline] 50 mg PO DAILY 07/10/20 Sertraline [Zoloft] 100 mg PO DAILY 07/10/20 Triamterene/Hydrochlorothiazid 1 tab PO DAILY 07/10/20 [Triamterene-Hctz 37.5-25 mg Tb] - Allergies Allergies/Adverse Reactions: Allergies Allergy/AdvReac Type Severity Reaction Status Date / Time Sulfa (Sulfonamide Allergy Unknown Verified 11/16/19 02:09 Antibiotics) Iodinated Contrast Media AdvReac Mild Unknown Verified 07/10/20 10:38 Review of Systems - Constitutional Constitutional: reports: Night sweats. denies: Fatigue, Fever, Chills, Malaise, Weakness, Poor appetite, Diaphoresis - Eyes Eyes: denies: Pain, Blurred vision, Field loss, Vision loss - Ears, Nose & Throat Ears, Nose & Throat: reports: Vertigo. denies: Ear pain, Hearing loss, Nosebleeds, Nasal congestion, Mouth lesions, Bleeding gums - Cardiovascular Cariovascular: denies: Irregular heart rate, Palpitations, Chest pain, Edema, L ightheadedness, Syncope, Exertional dyspnea, Decr. exercise tolerance - Respiratory Respiratory: denies: Cough, Sputum production, Wheezing, Snoring, Hemoptysis, Orthopnea, SOB at rest, SOB with exertion - Gastrointestinal Gastrointestinal: reports: Nausea, Vomiting. denies: Abdominal pain, Abdominal distention, Constipation, Diarrhea, Rectal bleeding, Black stools, Bloody stools, Coffee grounds emesis - Genitourinary Genitourinary: denies: Dysuria, Hematuria, Incontinence - Musculoskeletal Musculoskeletal: denies: Muscle pain, Muscle aches, Limited range of motion - Integumentary Integumentary: denies: Rash, Lesions, Lumps - Neurological Neurological: denies: General weakness, Focal weakness, Dizziness, Numbness, Memory problems, Pre-existing deficit, Abnormal gait, Seizures, Incoordination, Slurred speech - Psychiatric Psychiatric: denies: Depression, Suicidal, Delusions - Endocrine Endocrine: denies: Polyuria, Polydypsia - Hematologic/Lymphatic Hematologic/Lymphatic: denies: Anemia, Petechiae, Blood clots Prior Level of Functionality: pt is independent in the home Exam - Vital Signs Vital Signs: Vital Signs x48h Temp Pulse Resp BP Pulse Ox 07/10/20 15:00 97 17 152/77 H 100 07/10/20 14:35 99 15 152/71 H 100 07/10/20 13:26 37.4 C 07/10/20 13:23 96 16 134/73 H 100 07/10/20 12:12 97 20 148/100 H 100 07/10/20 11:22 92 14 158/72 H 100 07/10/20 10:31 92 16 155/89 H 100 07/10/20 10:13 36.6 C 92 16 128/111 H 100 - Physical Exam General Appearance: positive: Alert, Mild distress. negative: Lethargic Eyes Bilateral: positive: Normal inspection, PERRL, No lid inflammation ENT: positive: ENT inspection nml, Dry mucous membranes. negative: Purulent nasal drainage, Oral lesions Neck: positive: Nml inspection, Trachea midline. negative: Thyromegaly, Tracheal deviation Respiratory: positive: Chest non-tender, No respiratory distress, Breath sounds nml. negative: Wheezes, Rales, Rhonchi Cardiovascular: positive: Regular rate & rhythm, No murmur. negative: Tachycardia, Bradycardia, Systolic murmur, Diastolic murmur Peripheral Pulses: positive: 2+ Abdomen: positive: Non-tender, Nml bowel sounds, No distention. negative: Tenderness, Guarding, Rebound Back: positive: Nml inspection Skin: positive: Color nml, Warm, Dry. negative: Cyanosis, Diaphoresis, Pallor Extremities: positive: Non-tender, Full ROM, Nml appearance. negative: Calf te nderness Neurologic/Psychiatric: positive: Oriented x3, Motor nml, Sensation nml, Mood/affect nml. negative: Weakness, Sensory loss, Facial droop, Slurred/abnml speech, Depressed mood/affect Sepsis Event Note (H) - Evaluation Current Stage of Sepsis: Ruled out Conclusion/Plan - Problem List (1) Nausea & vomiting Conclusion/Plan: Patient report had a 2-day nausea and vomiting. Patient has a history of Meniere's. Differential diagnosis including virus gastroenteritis, active Meniere's disease. Patient believe her nausea and vomiting was caused by Mnire's disease exacerbation. Patient COVID-19 testing is pending. ER already give patient 2 L of intravenous IV fluids. Because the patient have hyponatremia so we will not give patient HCTZ now. We will continue antiemesis as needed, Continue intravenous IV fluids, Start with clear liquid diet with some bowel rest. Vital signs and animal laboratory technician. If patient's nausea and vomiting is not controlled, we may look for consideration of other etiologies (2) Mnire's disease, active Conclusion/Plan: Patient has history of Meniere's disease, Patient is thinking Meniere's is returned. Patient was given Antivert. Patient denies hearing loss. Because patient have hyponatremia, we will hold HCTZ For treatment of Meniere's disease, Continue antivert PRN. continue IVF, vital signs monitor. Qualifiers: Laterality: unspecified laterality Qualified Code(s): H81.09 - Meniere's disease, unspecified ear (3) Hypokalemia Conclusion/Plan: Patient had potassium 2.2, Patient deny chest pain or palpitation, Likely caused by patient vomiting. ER replaced 40 Meq of potassium, we will continue replace potassium and animal laboratory technician (4) HTN (hypertension) Conclusion/Plan: Patient had slightly elevated blood pressure, will resume home propanolol, Continue vital signs monitor (5) HLD (hyperlipidemia) Conclusion/Plan: Resume home statin after confirmed (6) Weakness Conclusion/Plan: Patient reported weakness, complain she cannot walk because of weakness, We will order physical therapist and occupational therapist for patient (7) Hyponatremia Conclusion/Plan: Has has sodium 131, Patient had nausea and vomiting for 2 days, Likely patient has Hypovolemia and hyponatremia. We will give patient intravenous IV fluids of normal saline, we will animal laboratory technician - Lab Results Fish Bones: 07/10/20 10:30 07/10/20 10:30 Core Measures - Anticipated LOS I expect patient to be DC'd or transferred within 96 hours.: Yes - DVT/VTE - Prophylaxis VTE/DVT Device ordered at admit?: Yes VTE/DVT Prophylaxis med ordered at admit?: Yes
[2020-07-10] MEDS: POTASSIUM CHLOR 10 MEQ/100 ML 10 MEQ/100 ML BAG IV SCH ×5 (17:20→23:57)
[2020-07-10 18:22] LABS: C. PNEUMONIAE- RESP PCR PANEL NOT DETECTED
[2020-07-10] MEDS: PROPRANOLOL 40 MG TABLET PO SCH ×2 (20:06→21:04)
[2020-07-10] MEDS: SODIUM CHLORIDE 0.9% 1,000 ML IV SCH (20:07)
[2020-07-10] MEDS: SODIUM CHLORIDE FLUSH 0.9% 10 ML SYRINGE IVP SCH (20:09)
[2020-07-10] MEDS ORDERED: PROPRANOLOL 40 MG TABLET PO SCH (21:00)
[2020-07-11] MEDS: SODIUM CHLORIDE FLUSH 0.9% 10 ML SYRINGE IVP SCH ×2 (00:29→09:29)
[2020-07-11] MEDS: POTASSIUM CHLOR 10 MEQ/100 ML 10 MEQ/100 ML BAG IV SCH (00:59)
[2020-07-11] MEDS: MECLIZINE 12.5 MG TABLET PO PRN ×2 (01:56→09:28)
[2020-07-11] MEDS: SODIUM CHLORIDE 0.9% 1,000 ML IV SCH (03:08)
[2020-07-11 05:38] LABS: BASOPHILS % (AUTO) 0.1 %; EOSINOPHILS % (AUTO) 0.1 %; HGB - HEMOGLOBIN 14.2 g/dL (12.0-16.0); LYMPHOCYTES % (AUTO) 14.3 %; MEAN CORPUSCULAR HEMOGLOBIN 30.9 pg (27.0-31.0); MEAN CORPUSCULAR HGB CONC 34.1 g/dL (32.0-36.0); MEAN CORPUSCULAR VOLUME 90.8 fL (81.0-99.0); MEAN PLATELET VOLUME 9.5 fL (7.9-10.8); MONOCYTES # (AUTO) 0.6 10^3/uL (0.0-1.0); MONOCYTES % (AUTO) 8.7 %; NEUTROPHILS # (AUTO) 5.4 10^3/uL (1.5-6.6); NEUTROPHILS % (AUTO) 76.4 %; PLT - PLATELET COUNT 249 10^3/uL (130-450); RED BLOOD COUNT 4.59 10^6/uL (4.20-5.40); RED CELL DISTRIBUTION WIDTH 13.9 % (12.0-15.0)
[2020-07-11 05:52] LABS: CALCIUM 8.6 mg/dL (8.5-10.3); CREATININE 0.4 mg/dL (0.4-1.0)
[2020-07-11] MEDS ORDERED: PANTOPRAZOLE 40 MG TABLET PO SCH (07:00)
[2020-07-11] MEDS ORDERED: CARBOXYMETHYLCELLULOSE OPHTH DROPS EACHEYE PRN (08:58)
[2020-07-11] MEDS ORDERED: ENOXAPARIN 40 MG/0.4 ML SYRINGE SUBQ SCH (09:00)
[2020-07-11] MEDS ORDERED: ALPRAZolam 0.25 MG TABLET PO PRN (09:08)
[2020-07-11] MEDS: PROPRANOLOL 40 MG TABLET PO SCH (09:28)
[2020-07-11] MEDS ORDERED: SERTRALINE 50 MG TABLET PO SCH (10:00)
--- NOTE | 2020-07-11 11:59 | PHARMACY PROGRESS NOTE ---
- Best Possible Medication History Admit Date and Time: 07/10/20 1640 Processed by: Pharmacy Medication History completed: Yes Patient Interview: Completed Secondary Source(s): Physician records, Pharmacy records, Insurance records (PATIENT INTERVIEWED BY PHARMACY. PATIENT ABLE TO CONFIRM HOME MEDICATIONS) As the person ultimately responsible for medication therapy, providers are able to order a medication from an existing home medication list in [facility] via the "Reconcile Routine" prior to Confirmation of that medication by administrative support manager. Such practice is discouraged except when the physician, in their clinical judgment, deems that a medical need exists for a medication without regard to previous use.
[2020-07-11] MEDS ORDERED: ASPIRIN CHEW 81 MG TABLET PO SCH (12:00)
--- NOTE | 2020-07-11 12:13 | XRAY Report ---
PROCEDURE: Finger(s) LT INDICATIONS: pain and injury TECHNIQUE: AP hand, 3 views of the fourths finger(s) acquired. COMPARISON: X-ray finger 12/04/2015 FINDINGS: Bones: No fractures or dislocations. No suspicious bony lesions. Prominent interval degenerative P IP and DIP narrowing is noted at the fourth digit and to a lesser degree digits 1, 2, 3 and 5. Modera te first CMC degenerative narrowing.. First MCP surgical fusion is present. Soft tissues: No suspicious soft tissue calcifications. IMPRESSION: 1. No visualized acute fracture or dislocation. However, occult injury cannot be excluded. Recommend short interval imaging follow-up in 7-10 days as clinically indicated for additional evaluation. 2. Progressive arthritic changes as above. Reviewed by: Deisy Long MD on 07/11/2020 12:11 PM [facility] Approved by: Deisy Long MD on 07/11/2020 12:11 PM [facility] Station ID: [id number]
[2020-07-11 12:34] VITALS: BP 147/63
--- NOTE | 2020-07-11 13:15 | Discharge Plan ---
Discharge Plan Problem Reviewed?: Yes Disposition: Home, Self Care Condition: Stable Prescriptions: Meclizine [Antivert] 12.5 mg PO Q6HR PRN #15 tablet PRN Reason: Dizziness Ondansetron HCl [Zofran] 4 mg PO Q6H PRN #15 tab PRN Reason: Nausea / Vomiting Diet: Regular Activity Restrictions: Activity as Tolerated Shower Restrictions: No (fall precaution) Instruction Topics: Meniere Disease, ED Dehydration, ED Potassium Deficiency, Meclizine tablets or capsules, Ondansetron tablets Health Concerns: meniere's disease Plan of Treatment: you have meniere's disease, and nausea and vomiting are good control now. you may try to reduce your salt intake in your diet, avoid Alcohol, Caffeine, stop smoking, avoid exposure to loud noises, manage of stress, keep hydration at home and prevention of fall Care Goals: stabilization and improvement of your medical conditions Assessment: discussed the care plan with you, you understood and agreed. Additional Instructions or Follow Up instructions: You may followup with your PCP in one to two weeks. Should your symptoms return or worsen, you may present ER or call 911 for help. No Smoking: If you smoke, Please STOP! Call for help. Follow-up with: Shante Graf ARNP, HUMAN RESOURCES EXECUTIVE ASSISTANT-C [Primary Care Provider] -
--- NOTE | 2020-07-11 13:27 | DISCHARGE SUMMARY ---
Discharge Summary Admit Date: 07/10/20 Discharge Date: 07/11/20 Discharging Provider: Albert Ayala Primary Care Provider: Shante Cardenas Condition at Discharge: Stable Discharge Disposition: Home, Self Care Discharge Facility Name: home - DIAGNOSES Discharge Diagnoses with Status of Each Condition: (1) Nausea & vomiting resolved. pt is prescribed Zofran as needed (2) Mnire's disease, active resolved. pt is prescribed antivert as needed (3) Hypokalemia resolved (4) HTN (hypertension) stable, resolved home propanolol (5) HLD (hyperlipidemia) stable, Resume home statin after confirmed (6) Weakness resolved. PT and OT saw patient and recommended patient can be d/c without additional needed (7) Hyponatremia resolved Patient had a urine culture show positive for E. coli but patient has no fever, no elevated WBC, patient has no symptoms at all. Patient declined to take antibiotics - HPI History of Present Illness: 75-year-old female with a history of Mnire's disease, and HTN, HLD who present ER complain of Nausea, vomiting, dizziness and Generalized Weakness.Pt reports that she has a hx of menieres disease. pt Reports she nausea and vomiting since yesterday afternoon. Pt arrived by BLS ambulance. She denies fever, shortness of breathing, abdominal pain. She also denies hearing loss. Patient reported she had twice Mnire's disease exacerbation one was 8 years ago, second was 2 years ago. Patient report betahistine was very good control of her symptoms. Unfortunately this meds was not proved by [facility] FDA. Routine laboratory tests that show patient had a potassium of 2.2. CT of the head was unremarkable for acute findings. Patient was treated by in ER. she is given IVF of normal saline, potassium of both oral and IV potassium, and antivert, and antiemesis. Despite additional mediations was given to the patient, but she still feels weak and dizzy and unable to walk, and uncontrolled nausea and vomiting. She also failed a road test here in the emergency department. Given pt's above medical conditions, our hospitalist was consulted for admission in observation unit. Discussed the care goal with the patient, patient requested DNR. - HOSPITAL COURSE Hospital Course: Patient was admitted for nause and vomiting, was likely caused by patient recurrent Mnire's disease. After the patient was give intravenous IV fluids, bowel rest, Antivert medication as needed, antiemesis as needed. Patient's Symptoms was resolved. Patient had a urine culture show positive for E. coli but patient has no fever, no elevated WBC, patient has no symptoms at all. Patient declined to take antibiotics - ALLERGIES Allergies/Adverse Reactions: Allergies Allergy/AdvReac Type Severity Reaction Status Date / Time Sulfa (Sulfonamide Allergy Unknown Verified 11/16/19 02:09 Antibiotics) Iodinated Contrast Media AdvReac Mild Unknown Verified 07/10/20 10:38 - MEDICATIONS Home Medications: Ambulatory Orders Medication Instructions Recorded Confirmed Propranolol HCl 40 mg PO BID 11/28/14 07/11/20 Rosuvastatin Calcium [Crestor] 10 mg PO DAILY 08/05/15 07/11/20 ALPRAZolam [Alprazolam] 0.5 mg PO DAILY PRN 07/10/20 07/11/20 Primidone [Mysoline] 50 mg PO DAILY 07/10/20 07/11/20 Sertraline [Zoloft] 100 mg PO DAILY 07/10/20 07/11/20 Triamterene/Hydrochlorothiazid 0.5 tab PO DAILY 07/10/20 07/11/20 [Triamterene-Hctz 37.5-25 mg Tb] Ascorbic Acid [Vitamin C] 500 mg PO DAILY 07/11/20 07/11/20 Cholecalciferol (Vitamin D3) 2,000 mg PO DAILY 07/11/20 07/11/20 [Vitamin D3] Meclizine [Antivert] 12.5 mg PO PRN PRN 07/11/20 07/11/20 Meclizine [Antivert] 12.5 mg PO Q6HR PRN #15 tablet 07/11/20 Ondansetron HCl [Zofran] 4 mg PO Q6H PRN #15 tab 07/11/20 Potassium Chloride 10 meq PO DAILY 07/11/20 07/11/20 - PHYSICAL EXAM AT DISCHARGE General Appearance: positive: No acute distress, Alert. negative: Lethargic Eyes Bilateral: positive: Normal inspection, PERRL, No lid inflammation ENT: positive: ENT inspection nml, No signs of dehydration. negative: Purulent nasal drainage Neck: positive: Nml inspection, Trachea midline. negative: Thyromegaly, Tracheal deviation Respiratory: positive: Chest non-tender, No respiratory distress, Breath sounds nml. negative: Wheezes, Rales, Rhonchi Cardiovascular: positive: Regular rate & rhythm. negative: Tachycardia, Bradycardia, Systolic murmur, Diastolic murmur Peripheral Pulses: positive: 2+ Abdomen: positive: Non-tender, Nml bowel sounds, No distention. negative: Tenderness, Guarding, Rebound Back: positive: Nml inspection. negative: CVA tenderness (R), CVA tenderness (L) Skin: positive: Color nml, Warm, Dry. negative: Cyanosis, Diaphoresis, Pallor Extremities: positive: Non-tender, Full ROM, Nml appearance. negative: Calf tenderness Neurologic/Psychiatric: positive: Oriented x3, Motor nml, Sensation nml, Mood/affect nml. negative: Weakness, Sensory loss, Facial droop, Slurred/abnml speech, Depressed mood/affect - LABS Result Diagrams: 07/11/20 05:15 07/11/20 05:15 - SEPSIS Current Stage of Sepsis: Ruled out - FOLLOW UP Follow Up: you have meniere's disease, and nausea and vomiting are good control now. you may try to reduce your salt intake in your diet, avoid Alcohol, Caffeine, stop smoking, avoid exposure to loud noises, manage of stress, keep hydration at home and prevention of fall. You may followup with your PCP in one to two weeks. Should your symptoms return or worsen, you may present ER or call 911 for help. - TIME SPENT Time Spent in Discharge (Minutes): 30
[2020-07-11] MEDS ORDERED: ATORVASTATIN 10 MG TABLET PO SCH (21:00)
== END 2020-07-11 13:55 | disposition home or self-care (01) ==
LOC: EDUNIT# → ED 10:12 → MS3 16:40
PROVIDERS: ADMIT Nurse Practitioner Gerontology; ATTEND Nurse Practitioner Gerontology
DX: H81.09 Meniere's disease, unspecified ear (principal); E87.6 Hypokalemia; I10 Essential (primary) hypertension; E78.5 Hyperlipidemia, unspecified; R53.1 Weakness; E87.1 Hypo-osmolality and hyponatremia; E86.0 Dehydration; Z20.822 Contact with and (suspected) exposure to COVID-19; R82.71 Bacteriuria
CPT/HCPCS: 36415; 70450; 73140; 80048; 80053; 81001; 83605; 83690; 84443; 85025; 87086; 87181; 87631; 96365; 96366; 96372; 96375; 96376; 97161; 97165; 99284; 99285; A9270; G0378; J1650; 0202U; 81003

== ENCOUNTER 2020-09-10 14:02 | Outpatient (CLI) | payer MEDICARE, OTHER ==
[2020-09-10 14:19] LABS: BASOPHILS % (AUTO) 0.8 %; EOSINOPHILS # (AUTO) 0.1 10^3/uL (0.0-0.7); EOSINOPHILS % (AUTO) 1.2 %; HCT - HEMATOCRIT 45.4 % (37.0-47.0); HGB - HEMOGLOBIN 15.2 g/dL (12.0-16.0); LYMPHOCYTES # (AUTO) 1.4 10^3/uL (1.5-3.5); LYMPHOCYTES % (AUTO) 26.7 %; MEAN CORPUSCULAR HEMOGLOBIN 30.7 pg (27.0-31.0); MEAN CORPUSCULAR HGB CONC 33.5 g/dL (32.0-36.0); MEAN CORPUSCULAR VOLUME 91.7 fL (81.0-99.0); MEAN PLATELET VOLUME 9.1 fL (7.9-10.8); MONOCYTES # (AUTO) 0.4 10^3/uL (0.0-1.0); NEUTROPHILS # (AUTO) 3.3 10^3/uL (1.5-6.6); NEUTROPHILS % (AUTO) 63.1 %; PLT - PLATELET COUNT 285 10^3/uL (130-450); RED BLOOD COUNT 4.95 10^6/uL (4.20-5.40); RED CELL DISTRIBUTION WIDTH 13.8 % (12.0-15.0); WHITE BLOOD COUNT 5.1 x10^3/uL (4.8-10.8)
[2020-09-10 14:32] LABS: ALBUMIN 4.5 g/dL (3.2-5.5); ALBUMIN/GLOBULIN RATIO 1.5 (1.0-2.2); BILIRUBIN,TOTAL 0.6 mg/dL (0.2-1.0); CALCIUM 9.4 mg/dL (8.5-10.3); CREATININE 0.7 mg/dL (0.4-1.0); POTASSIUM 3.9 mmol/L (3.5-5.0); TOTAL PROTEIN 7.5 g/dL (6.7-8.2)
[2020-09-10 18:47] LABS: ESTIMATED AVERAGE GLUCOSE 103 mg/dL (70-100); HEMOGLOBIN A1c% 5.2 % (4.27-6.07)
== END 2020-09-10 14:03 | disposition home or self-care (01) ==
LOC: LAB 14:02
PROVIDERS: ATTEND Nurse Practitioner
DX: E87.6 Hypokalemia (principal); I10 Essential (primary) hypertension; Z79.899 Other long term (current) drug therapy; R73.01 Impaired fasting glucose
CPT/HCPCS: 36415; 80053; 83036; 85025

== ENCOUNTER 2020-11-14 08:00 | Outpatient (CLI) | payer MEDICARE, OTHER ==
--- NOTE | 2020-11-14 09:19 | CARDIAC PROCEDURE NOTE ---
Stress Test Report Service Date: 11/14/20 Ordering Provider: Dr Karla Cooney Indication for Test: Atherosclerotic coronary artery disease (Hx of CABG) Cardiac Risk Factors: Postmenopausal status, hypertension, hyperlipidemia, family history of heart disease. (Patient has known history of carotid and coronary disease, had CABG in 2006). Type of Stress Test: Exercise Treadmill Test (ETT) Procedure: After signing informed consent, the patient underwent a Dario-protocol treadmill stress test. No cardiac imaging was ordered with this test. Resting heart rate: 62 Peak heart rate: 126 (85% predicted maximum heart rate for age) Resting BP: 157/74. Peak BP: 204/94 Resting O2 saturation: 99% O2 sat at stage 2: 91% O2 sat at peak: 89% O2 sat in immediate recovery: 83% (however, the patient was able to speak and did during all of exercise). O2 sat after 1 min of recovery: 98% Patient exercised for 6 minutes and 49 seconds on a Dario-protocol treadmill stress test. She achieved a peak heart rate of 126 (85% p.m. HR) and 8.31 METS. Patient had mild shortness of breath at peak, and no chest pain with exercise. She rated her perceived exertion at 16-17/20 on the Leora scale at peak. Resting EKG: Normal sinus rhythm, rate 62, left atrial enlargement, possible by LVH voltage. Rhythm during exercise: Rare PVCs in final stage, a ventricular couplet seen at peak. EKG at peak: No ischemic ST segment or T wave changes. Summary: 1) Borderline abnormal resting EKG. 2) No ischemic changes develop by EKG criteria, at a good level of stress achieved. 3) Oxygen desaturation seen with exercise. 4) Excessive BP response to exercise. IMPRESSION AND RECOMMENDATIONS: 1) BP response and O2 desaturation may have been due to very animated patient, talking throughout testing. 2) Due to oxygen desaturation with exertion, consider ordering a 6-min walk test to evaluate O2 saturation.
== END 2020-11-14 08:01 | disposition home or self-care (01) ==
LOC: DI 08:00
PROVIDERS: ATTEND Internal Medicine Cardiovascular Disease
DX: I25.10 Atherosclerotic heart disease of native coronary artery without angina pectoris (principal); R94.31 Abnormal electrocardiogram [ECG] [EKG]

== ENCOUNTER 2021-02-17 16:44 | Outpatient (CLI) | payer MEDICARE, OTHER | END 2021-02-17 16:45 | disposition home or self-care (01) | LOC: COV 16:44 | PROVIDERS: ATTEND Family Medicine | DX: R05 Cough (principal); M79.10 Myalgia, unspecified site; R53.83 Other fatigue; R07.0 Pain in throat; Z20.822 Contact with and (suspected) exposure to COVID-19 ==

== ENCOUNTER 2021-03-18 09:13 | Outpatient (CLI) | payer MEDICARE, OTHER ==
[2021-03-18 09:28] LABS: BASOPHILS # (AUTO) 0.1 10^3/uL (0.0-0.1); BASOPHILS % (AUTO) 1.3 %; EOSINOPHILS # (AUTO) 0.1 10^3/uL (0.0-0.7); EOSINOPHILS % (AUTO) 1.3 %; HCT - HEMATOCRIT 46.2 % (37.0-47.0); HGB - HEMOGLOBIN 15.1 g/dL (12.0-16.0); LYMPHOCYTES # (AUTO) 1.9 10^3/uL (1.5-3.5); LYMPHOCYTES % (AUTO) 39.7 %; MEAN CORPUSCULAR HEMOGLOBIN 30.8 pg (27.0-31.0); MEAN CORPUSCULAR HGB CONC 32.7 g/dL (32.0-36.0); MEAN CORPUSCULAR VOLUME 94.3 fL (81.0-99.0); MEAN PLATELET VOLUME 9.1 fL (7.9-10.8); MONOCYTES # (AUTO) 0.4 10^3/uL (0.0-1.0); MONOCYTES % (AUTO) 8.8 %; NEUTROPHILS # (AUTO) 2.3 10^3/uL (1.5-6.6); NEUTROPHILS % (AUTO) 48.7 %; PLT - PLATELET COUNT 291 10^3/uL (130-450); RED CELL DISTRIBUTION WIDTH 13.3 % (12.0-15.0); WHITE BLOOD COUNT 4.8 x10^3/uL (4.8-10.8)
[2021-03-18 09:47] LABS: ALBUMIN 4.4 g/dL (3.2-5.5); ALBUMIN/GLOBULIN RATIO 1.4 (1.0-2.2); ALKALINE PHOSPHATASE 36 IU/L (42-121); ALT ALANINE AMINOTRANSFERASE 39 IU/L (10-60); AST ASPARTATE AMINOTRANSFERASE 35 IU/L (10-42); BILIRUBIN,TOTAL 0.6 mg/dL (0.2-1.0); BUN - BLOOD UREA NITROGEN 24 mg/dL (6-20); CALCIUM 9.6 mg/dL (8.5-10.3); CARBON DIOXIDE - CO2 30 mmol/L (21-32); CHLORIDE 102 mmol/L (101-111); CHOL/HDL RATIO 2.8 (<4.4); CHOLESTEROL 212 mg/dL; CREATININE 0.7 mg/dL (0.4-1.0); GFR - MDRD 82 (>89); GLUCOSE 102 mg/dL (70-100); HDL CHOLESTEROL 76 mg/dL; LDL CHOLESTEROL,CALCULATED 108 mg/dL; LDL/HDL RATIO 1.4 (<4.4); SODIUM 142 mmol/L (135-145); TOTAL PROTEIN 7.6 g/dL (6.7-8.2); TRIGLYCERIDES 140 mg/dL; VLDL CHOLESTEROL 28 mg/dL
[2021-03-18 09:58] LABS: THYROID STIMULATING HORMONE 3.39 uIU/mL (0.34-5.60)
== END 2021-03-18 09:14 | disposition home or self-care (01) ==
LOC: LAB 09:13
PROVIDERS: ATTEND Family Medicine
DX: I65.23 Occlusion and stenosis of bilateral carotid arteries (principal); M15.9 Polyosteoarthritis, unspecified; I25.10 Atherosclerotic heart disease of native coronary artery without angina pectoris; Z95.1 Presence of aortocoronary bypass graft
CPT/HCPCS: 36415; 80053; 80061; 83721; 84443; 85025

== ENCOUNTER 2021-04-02 12:54 | Outpatient (CLI) | payer MEDICARE, OTHER ==
--- NOTE | 2021-04-03 09:34 | Mammography Report ---
BILATERAL DIGITAL SCREENING MAMMOGRAM 3D/2D: 04/02/2021 CLINICAL: Routine screening. Comparison is made to exams dated: 04/01/2020 mammogram, 05/05/2019 mammogram, 05/05/2019 ultrasound , 04/28/2019 mammogram, 05/11/2017 mammogram, and 05/08/2016 mammogram - [facility]. The tissue of both breasts is heterogeneously dense. This may lower the sensitivity of mammography. There are benign post operative findings in both breasts. No significant masses, calcifications, or other findings are seen in either breast. There has been no significant interval change. IMPRESSION: BENIGN There is no mammographic evidence of malignancy. A 1 year screening mammogram is recommended. This exam was interpreted at Station ID: [id number]. NOTE: For mammograms, a report in lay terms will be sent to the patient. Approximately 15% of breast malignancies will not be visualized mammographically. In the management of a palpable breast mass, a negative mammogram must not discourage biopsy of a clinically suspicious lesion. Electronically Signed By: Nishant Mcguire M.D., jr/christal:04/02/2021 14:05:29 ACR BI-RADS Category 2: Benign Finding(s) 3342F PARENCHYMAL PATTERN: (D) - The breast(s) demonstrate(s) heterogeneously dense fibroglandular jackelyn carlson. BI-RADS CATEGORY: (2) - 2 RECOMMENDATION: (ANNUAL) - Recommend routine annual screening mammography. [id number] 1 year screening LATERALITY: (B)
== END 2021-04-02 12:55 | disposition home or self-care (01) ==
LOC: DI 12:54
PROVIDERS: ATTEND Family Medicine
DX: Z12.31 Encounter for screening mammogram for malignant neoplasm of breast (principal)

== ENCOUNTER 2021-04-02 13:28 | Outpatient (CLI) | payer MEDICARE, OTHER ==
--- NOTE | 2021-04-02 16:36 | DEXA Report ---
PROCEDURE: Dexa Spine and/or Hip INDICATIONS: POST MENOPAUSAL TECHNIQUE: Dual energy x-ray absorptiometry (DXA) was performed on a [employer] System. Regions measur ed are the AP Spine, femoral neck, and if needed forearm. COMPARISON: 05/11/2017. FINDINGS: Lumbar Spine: Bone Mineral Density 1.213 g/cm/cm,T score 0.3, normal Left Hip: Bone Mineral Density 0.861 g/cm/cm,T score -1.2, osteopenia Left Femoral Neck: Bone Mineral Density 0.944 g/cm/cm, T score -0.7, normal (T score greater or equal to -1.0: NORMAL) (T score from -1.1 to -2.4: OSTEOPENIA) (T score less than or equal to -2.5 to: OSTEOPOROSIS) Impression: Osteopenia. Bone mineral density is decreased to 0.1% in the interval since prior exam ob tained 05/11/2017. Patients with diagnosis of osteoporosis or osteopenia should have regular bone mineral density assess ment. For those eligible for Medicare, routine testing is allowed once every 2 years. Testing frequ ency can be increased for patients who have rapidly progressing disease or for those who are receivin g medical therapy to restore bone mass. Reviewed by: Anne Rodriguez MD, PhD on 04/02/2021 4:34 PM PDT Approved by: Anne Rodriguez MD, PhD on 04/02/2021 4:34 PM PDT Station ID: [id number]
== END 2021-04-02 13:29 | disposition home or self-care (01) ==
LOC: DI 13:28
PROVIDERS: ATTEND Family Medicine
DX: Z78.0 Asymptomatic menopausal state (principal); M85.88 Other specified disorders of bone density and structure, other site

== ENCOUNTER 2021-10-28 08:00 | Outpatient (CLI) | payer MEDICARE, OTHER ==
--- NOTE | 2021-10-28 16:49 | XRAY Report ---
PROCEDURE: Chest 2 View X-Ray INDICATIONS: ACUTE COUGH TECHNIQUE: 2 view(s) of the chest. COMPARISON: None. FINDINGS: Surgical changes and devices: Sternal wires and hilar clips are present. Lungs and pleura: No pleural effusions or pneumothorax. Minimal appearance of streaky right basilar opacities are present. Mediastinum: Mediastinal contours are normal. Heart size is normal. Bones and chest wall: No suspicious bony abnormalities. Soft tissues appear unremarkable. IMPRESSION: Streaky right basilar opacities suggestive atelectasis versus developing pneumonia. Reviewed by: Deisy Long MD on 10/28/2021 4:48 PM PDT Approved by: Deisy Long MD on 10/28/2021 4:48 PM PDT Station ID: [id number]
== END 2021-10-28 23:59 | disposition home or self-care (01) ==
LOC: DI.S 08:00
PROVIDERS: ATTEND Physician Assistant
DX: J06.9 Acute upper respiratory infection, unspecified (principal); R91.8 Other nonspecific abnormal finding of lung field; Z20.822 Contact with and (suspected) exposure to COVID-19
CPT/HCPCS: 71046; U0004

== ENCOUNTER 2021-11-04 08:00 | Outpatient (CLI) | payer MEDICARE, OTHER | END 2021-11-04 23:59 | disposition home or self-care (01) | LOC: LAB 08:00 | PROVIDERS: ATTEND Nurse Practitioner Family | DX: J22 Unspecified acute lower respiratory infection (principal); R06.2 Wheezing; R05.1 Acute cough; Z20.822 Contact with and (suspected) exposure to COVID-19 ==

== ENCOUNTER → 2022-08-06 14:11 | Outpatient (CLI) | payer MEDICARE, OTHER ==
--- NOTE | 2022-08-06 14:07 | XRAY Report ---
PROCEDURE: Wrist 3 View RT INDICATIONS: RIGHT WRIST SPRAIN TECHNIQUE: 3 views of the wrist were acquired. COMPARISON: None FINDINGS: Bones: There are degenerative changes of the thumb and metacarpophalangeal joint and the first carpo metacarpal/triscaphe joint consistent with osteoarthritis. No fracture. No fractures or dislocations. No suspicious bony lesions. Soft tissues: No suspicious soft tissue calcifications. IMPRESSION: Degenerative changes of the right thumb metacarpophalangeal joint and the right carpomet acarpal joint and triscaphe joint. Reviewed by: Ranjit Paul on 08/06/2022 2:06 PM PST Approved by: Ranjit Paul on 08/06/2022 2:06 PM PST Station ID: [id number]
== END | disposition home or self-care (01) ==
LOC: DI.S 14:11
PROVIDERS: ATTEND Emergency Medicine
DX: S63.521A Sprain of radiocarpal joint of right wrist, initial encounter (principal); M18.11 Unilateral primary osteoarthritis of first carpometacarpal joint, right hand; M19.031 Primary osteoarthritis, right wrist

== ENCOUNTER 2023-04-05 11:07 | Outpatient (CLI) | payer MEDICARE, OTHER ==
--- NOTE | 2023-04-06 09:37 | Mammography Report ---
BILATERAL DIGITAL SCREENING MAMMOGRAM 3D/2D: 04/05/2023 CLINICAL: Routine screening. Comparison is made to exams dated: 04/03/2022 mammogram, 04/02/2021 mammogram, 04/01/2020 mammogram, 05/05/2019 mammogram, and 04/28/2019 mammogram - [facility]. Both breasts are heterogeneously dense, which may obscure small masses (category c / 51-75% glandular tissue). There are benign calcifications in both breasts. There also are benign post operative findings in katy th breasts. No significant masses, calcifications, or other findings are seen in either breast. There has been no significant interval change. IMPRESSION: BENIGN There is no mammographic evidence of malignancy. A 1 year screening mammogram is recommended. This exam was interpreted at Station ID: [id number]. NOTE: For mammograms, a report in lay terms will be sent to the patient. Approximately 15% of breast malignancies will not be visualized mammographically. In the management of a palpable breast mass, a negative mammogram must not discourage biopsy of a clinically suspicious lesion. Electronically Signed By: Lety ramon/christal:04/05/2023 17:08:35 letter sent: No_Letter ACR BI-RADS Category 2: Benign Finding(s) 3342F PARENCHYMAL PATTERN: (D) - The breast(s) demonstrate(s) heterogeneously dense fibroglandular parkhrisy aldo. BI-RADS CATEGORY: (2) - 2 Mammogram [id number] 1 year screening LATERALITY: (B)
== END 2023-04-05 11:08 | disposition home or self-care (01) ==
LOC: DI 11:07
DX: Z12.31 Encounter for screening mammogram for malignant neoplasm of breast (principal); R92.333 Mammographic heterogeneous density, bilateral breasts

== ENCOUNTER 2023-04-12 10:41 | Outpatient (CLI) | payer MEDICARE, OTHER ==
[2023-04-12 10:56] LABS: BASOPHILS % (AUTO) 0.8 %; EOSINOPHILS # (AUTO) 0.1 10^3/uL (0.0-0.7); HCT - HEMATOCRIT 44.3 % (37.0-47.0); HGB - HEMOGLOBIN 15.1 g/dL (12.0-16.0); LYMPHOCYTES # (AUTO) 1.6 10^3/uL (1.5-3.5); LYMPHOCYTES % (AUTO) 31.5 %; MEAN CORPUSCULAR HEMOGLOBIN 30.8 pg (27.0-31.0); MEAN CORPUSCULAR HGB CONC 34.1 g/dL (32.0-36.0); MEAN CORPUSCULAR VOLUME 90.2 fL (81.0-99.0); MEAN PLATELET VOLUME 8.6 fL (7.9-10.8); MONOCYTES # (AUTO) 0.4 10^3/uL (0.0-1.0); NEUTROPHILS % (AUTO) 58.5 %; PLT - PLATELET COUNT 335 10^3/uL (130-450); RED BLOOD COUNT 4.91 10^6/uL (4.20-5.40); RED CELL DISTRIBUTION WIDTH 12.5 % (12.0-15.0); WHITE BLOOD COUNT 5.1 x10^3/uL (4.8-10.8)
[2023-04-12 11:12] LABS: ALBUMIN 4.6 g/dL (3.2-5.5); ALBUMIN/GLOBULIN RATIO 1.8 (1.0-2.2); ALKALINE PHOSPHATASE 47 IU/L (42-121); ALT ALANINE AMINOTRANSFERASE 24 IU/L (10-60); AST ASPARTATE AMINOTRANSFERASE 25 IU/L (10-42); BILIRUBIN,TOTAL 0.6 mg/dL (0.2-1.0); BUN - BLOOD UREA NITROGEN 13 mg/dL (6-20); CALCIUM 9.6 mg/dL (8.5-10.3); CARBON DIOXIDE - CO2 33 mmol/L (21-32); CHLORIDE 98 mmol/L (101-111); CHOL/HDL RATIO 2.9 (<4.4); CHOLESTEROL 215 mg/dL; CREATININE 0.6 mg/dL (0.6-1.3); GFR - MDRD 97 (>89); GLUCOSE 98 mg/dL (74-104); HDL CHOLESTEROL 73 mg/dL; LDL CHOLESTEROL,CALCULATED 114 mg/dL; LDL/HDL RATIO 1.6 (<4.4); POTASSIUM 3.7 mmol/L (3.5-4.5); SODIUM 134 mmol/L (135-145); TOTAL PROTEIN 7.2 g/dL (6.4-8.9); TRIGLYCERIDES 139 mg/dL (48-352); VLDL CHOLESTEROL 28 mg/dL
[2023-04-12 11:23] LABS: THYROID STIMULATING HORMONE 2.45 uIU/mL (0.34-5.60)
== END 2023-04-12 10:42 | disposition home or self-care (01) ==
LOC: LAB 10:41
PROVIDERS: ATTEND Family Medicine
DX: I10 Essential (primary) hypertension (principal); F33.1 Major depressive disorder, recurrent, moderate; A04.72 Enterocolitis due to Clostridium difficile, not specified as recurrent; H81.09 Meniere's disease, unspecified ear; I25.810 Atherosclerosis of coronary artery bypass graft(s) without angina pectoris; E78.2 Mixed hyperlipidemia
CPT/HCPCS: 36415; 80053; 80061; 83721; 84443; 85025

== ENCOUNTER 2023-04-29 12:30 | Outpatient (CLI) | payer MEDICARE, OTHER ==
--- NOTE | 2023-04-29 15:27 | DEXA Report ---
PROCEDURE: Dexa Spine and/or Hip INDICATIONS: POST MENOPAUSAL TECHNIQUE: Dual energy x-ray absorptiometry (DXA) was performed on a [employer] System. Regions measur ed are the AP Spine, femoral neck, and if needed forearm. COMPARISON: 04/02/2021 FINDINGS: Lumbar Spine: Bone Mineral Density 1.160 g/cm/cm,T score -0 point. Normal Left Femoral Neck: Bone Mineral Density 0.864 g/cm/cm, T score -1.3. Osteopenia. Left Hip: Bone Mineral Density 0.86 g/cm/cm,T score -1.1. Osteopenia. (T score greater or equal to -1.0: NORMAL) (T score from -1.1 to -2.4: OSTEOPENIA) (T score less than or equal to -2.5 to: OSTEOPOROSIS) Impression: By WHO criteria, this patient has low bone density (osteopenia). Bone marrow density has no significa nt change compared to 04/02/2021. Patients with diagnosis of osteoporosis or osteopenia should have regular bone mineral density assess ment. For those eligible for Medicare, routine testing is allowed once every 2 years. Testing frequ ency can be increased for patients who have rapidly progressing disease or for those who are receivin g medical therapy to restore bone mass. Reviewed by: Anne Rodriguez MD, PhD on 04/29/2023 3:25 PM PST Approved by: Anne Rodriguez MD, PhD on 04/29/2023 3:25 PM PST Station ID: [id number]
== END 2023-04-29 12:31 | disposition home or self-care (01) ==
LOC: DI 12:30
PROVIDERS: ATTEND Family Medicine
DX: M85.89 Other specified disorders of bone density and structure, multiple sites (principal); Z78.0 Asymptomatic menopausal state

== ENCOUNTER 2023-05-22 09:48 | Emergency (ER) | payer MEDICARE, OTHER ==
--- NOTE | 2023-05-22 10:06 | ED Physician Documentation ---
PD HPI URI - Stated complaint Stated Complaint: BODY ACHES/HEAD PX - Chief complaint Chief Complaint: General - History obtained from History obtained from: Patient - History of Present Illness Timing - onset: How many weeks ago (1) Timing duration: Weeks (1) Timing details: Abrupt onset, Still present Associated symptoms: Fever (initially ill a week ago with some fever and chills, aches, congestion, cough. Fevers gone. Having increasing myalgias and cough the past 1-2 days, with headache as well. Nausea with less intkae but no vomiting nor diarrhea. Feeling dyspnea and wheezing now the past day as well.), Chills, Dry cough, Dyspnea. No: Chest pain Contributing factors: No: Sick contact, COPD / asthma Similar symptoms before: Has not had sx before Review of Systems Constitutional: reports: Fever (initially with illness a week ago, but not the past couple days.), Chills, Myalgias Nose: denies: Rhinorrhea / runny nose, Congestion Throat: denies: Sore throat Respiratory: reports: Dyspnea, Cough, Wheezing Neurologic: reports: Generalized weakness, Headache. denies: Focal weakness, Near syncope, Confused, Altered mental status PD PAST MEDICAL HISTORY - Past Medical History Past Medical History: Yes Cardiovascular: Hypertension, High cholesterol, Coronary artery disease Neuro: None Musculoskeletal: None - Past Surgical History Past Surgical History: Yes General: Appendectomy Ortho: Other Cardiovascular: CABG HEENT: Tonsil/Adenoidectomy - Present Medications Home Medications: Ambulatory Orders Medication Instructions Recorded Confirmed Propranolol HCl 40 mg PO BID 11/28/14 07/11/20 Rosuvastatin Calcium [Crestor] 10 mg PO DAILY 08/05/15 07/11/20 ALPRAZolam [Alprazolam] 0.5 mg PO DAILY PRN 07/10/20 07/11/20 Primidone [Mysoline] 50 mg PO DAILY 07/10/20 07/11/20 Sertraline [Zoloft] 100 mg PO DAILY 07/10/20 07/11/20 Triamterene/Hydrochlorothiazid 0.5 tab PO DAILY 07/10/20 07/11/20 [Triamterene-Hctz 37.5-25 mg Tb] Ascorbic Acid [Vitamin C] 500 mg PO DAILY 07/11/20 07/11/20 Cholecalciferol (Vitamin D3) 2,000 mg PO DAILY 07/11/20 07/11/20 [Vitamin D3] Meclizine [Antivert] 12.5 mg PO PRN PRN 07/11/20 07/11/20 Meclizine [Antivert] 12.5 mg PO Q6HR PRN #15 tablet 07/11/20 Potassium Chloride 10 meq PO DAILY 07/11/20 07/11/20 ondansetron HCL [Zofran] 4 mg PO Q6H PRN #15 tab 07/11/20 Albuterol Sulf [Ventolin Hfa 2 - 3 puffs INH QID #1 each 05/22/23 Inhaler] HYDROcod/ACETAM 5/325 [[place] 5/325] 1 ea PO Q6H PRN #12 tablet 05/22/23 dexAMETHasone [Decadron] 4 mg PO DAILY #5 tablet 05/22/23 - Allergies Allergies/Adverse Reactions: Allergies Allergy/AdvReac Type Severity Reaction Status Date / Time Sulfa (Sulfonamide Allergy Unknown Verified 05/22/23 09:59 Antibiotics) Iodinated Contrast Media AdvReac Mild Unknown Verified 05/22/23 09:59 - Social History Does the pt smoke?: No Smoking Status: Never smoker Does the pt drink ETOH?: No Does the pt have substance abuse?: No - Immunizations Immunizations are current?: Yes - POLST Patient has POLST: No PD ED PE NORMAL - Vitals Vital signs reviewed: Yes - General General: Alert and oriented X 3, Well developed/nourished, Other (appears uncomfortable generally and remarks on diffuse myalgias and dyspnea the most. Also headache as main complaint. Is alert and conversant well. ) - HEENT HEENT: Ears normal, Pharynx benign - Neck Neck: Supple, no meningeal sign, No bony TTP - Cardiac Cardiac: RRR, No murmur - Respiratory Respiratory: No: Clear bilaterally (no wheezing nor congestion but does have limited tidal volume and then causing cough to breath. ) - Abdomen Abdomen: Soft, Non tender - Derm Derm: Normal color, Warm and dry - Extremities Extremities: No edema, No calf tenderness / cord - Neuro Neuro: Alert and oriented X 3, No motor deficit, Normal speech Eye Opening: Spontaneous Motor: Obeys Commands Verbal: Oriented GCS Score: 15 Results - Vitals Vitals: Oxygen O2 Source Room air - Labs Labs: Laboratory Tests 05/22/23 05/22/23 05/22/23 10:43 11:35 11:35 WBC 11.0 H RBC 4.40 Hgb 13.2 Hct 38.8 MCV 88.2 MCH 30.0 MCHC 34.0 RDW 12.7 Plt Count 278 MPV 8.9 Neut # (Auto) 9.3 H Lymph # (Auto) 0.8 L Cal[place] # (Auto) 0.9 Eos # (Auto) 0.0 Baso # (Auto) 0.0 Absolute Nucleated RBC 0.00 Nucleated RBC % 0.0 Sodium 126 L Potassium 3.1 L Chloride 90 L Carbon Dioxide 29 Anion Gap 7.0 BUN 7 Creatinine 0.5 L Estimated GFR (MDRD) 120 Glucose 119 H Calcium 9.3 Magnesium 1.7 Total Bilirubin 0.5 AST 18 ALT 21 Alkaline Phosphatase 40 L Total Protein 6.5 Albumin 4.1 Globulin 2.4 Albumin/Globulin Ratio 1.7 Lipase 16 Nasal Adenovirus (PCR) NOT DETECTED Nasal B. parapertussis DNA (PCR) NOT DETECTED Nasal Coronavir 229E PCR NOT DETECTED Nasal Coronavir HKU1 PCR NOT DETECTED Nasal Coronavir NL63 PCR NOT DETECTED Nasal Coronavir OC43 PCR NOT DETECTED Nasal Enterovir/Rhinovir PCR NOT DETECTED Nasal Influenza B PCR NOT DETECTED Nasal Influenza A PCR NOT DETECTED Nasal Parainfluen 1 PCR NOT DETECTED Nasal Parainfluen 2 PCR NOT DETECTED Nasal Parainfluen 3 PCR NOT DETECTED Nasal Parainfluen 4 PCR NOT DETECTED Nasal RSV (PCR) NOT DETECTED Nasal B.pertussis DNA PCR NOT DETECTED Nasal C.pneumoniae (PCR) NOT DETECTED Lele Human Metapneumo PCR NOT DETECTED Nasal M.pneumoniae (PCR) NOT DETECTED Nasal SARS-CoV-2 (PCR) NOT DETECTED - Rads (name of study) chest xray Relevant Findings:: Prelim report reviewed, EMP independent interpretation of test (no acute cardiopulmonary process. ) PD Medical Decision Making - ED course Complexity details: reviewed results (sodium low at 126 and potassium 3.1. Creatinine good at 0.5 and Hgb without anemia. WCB mildly elevated at 11.0. Sodium coup;le weeks ago was 134, so slightly low but not as much as current. ), considered differential (she is alert and interacts well. Complains mainly of diffuse myalgias and aches, moderately of headache, and also fatigue. ), d/w patient Reviewed Lab Results: chest xray without infiltrates, ordered due to increased cough and dyspnea as complaint. ED course: She has geneeral body aches and headache but is alert and conversant, no vomiting but nausea. Does not have menigeal findings on exam. Considered further evaluation with labs and consider LP if not improved with fluids and meds. Recheck of patient after IV fluids and meds of Naproxen, decadron and hydrocodone with considerab le improvement. She says pains are nearly gone and headache is all gone. Exam still benign and still no menigeal nor encephalopathic symptoms. I do not feel CT nor LP is indicated. Patient is okay with that but cautioned to return if headache or other symptoms worsen/develop. She was given albutero MDI 3 puffs and felt significant improvement in her breathing. Her sodium is low but cognitively she is doing well. Given NS and potassium in ED IV to improve these. She is taking PO well and able to remain hydrated. I do not feel she clinically needs hospitalization for this. She is much in favor of going home and is asking when she can be discahrged. I scripted albutero MDI for her breathing, and given the myalgias, element of bronchial reactivity and some headache, I felt steroids would be beneficial. Departure - Departure Disposition: 01 Home, Self Care Clinical Impression: Myalgia due to viral infection, Headache, Volume depletion, Hyponatremia, Hypokalemia Condition: Stable Record reviewed to determine appropriate education?: Yes Instructions: ED Diet High Potassium, ED Viral Syndrome Follow-Up: Berry Acosta MD [Primary Care Provider] - Prescriptions: dexAMETHasone [Decadron] 4 mg PO DAILY #5 tablet HYDROcod/ACETAM 5/325 [[place] 5/325] 1 ea PO Q6H PRN #12 tablet PRN Reason: Pain Albuterol Sulf [Ventolin Hfa Inhaler] 2 - 3 puffs INH QID #1 each Comments: Your chest x-ray is clear without any signs of pneumonia or fluid in the lungs. Your respiratory viral panel is negative for the major viruses including COVID, flu, RSV, rhinovirus, adenovirus, and several others. Your symptoms do sound likely that you had some viral illness and are now having some inflammatory residual. It is possible you may be developing a second viral type illness that just is not testing positive. See how you do over the next few days. We will treat as the inflammatory response to a recent illness. I do not get a sense of a bacterial type process that would be improved with antibiotics. However I do feel you would be improved with the medications like we gave you here of albuterol inhaler 2 to 3 puffs 4 times a day to help with the breathing and chest tightness. Also Decadron steroid for inflammation daily for 3-5 more days. To this stay well-hydrated and add Tylenol 500 to 650 mg 4 times daily for pains. Add hydrocodone/acetaminophen if needed for worse pain and I would presume this would be needed just in the short-term. On your blood test, you did have a low sodium and potassium. You were given some extra saline fluids IV as well as some potassium. Continue with electrolyte type fluids such as Pedialyte or Gatorade or such and potassium containing foods to continue to supplement those. I sent prescriptions to your preferred pharmacy, [facility]. Recheck if not improved well over the next few days and return if worse. I am prescribing a short course of narcotic pain medication for you. These are potentially dangerous and addictive medications that should be used carefully. These medications may constipate you. Take an [id number] stool softener such as docusate twice daily with plenty of water while taking these medications. If you go 24 hours without a bowel movement, take [id number] MiraLAX, per package instructions. Do not drink or drive while taking these medications. If you received narcotic or sedating medications while in the emergency department do not drive for 24 hours. Store this medication in a safe, secure place and out of reach of children. It is a violation of federal law to give or sell this medication to another person or to use in a manner other than prescribed. The ED will not refill narcotic prescriptions, including prescriptions lost or stolen. You can dispose of unwanted medications at the [facility]'s office or at several pharmacies such as [facility]. Forms: PCP List Discharge Date/Time: 05/22/23 14:07
[2023-05-22] MEDS ORDERED: dexAMETHasone 4 MG TABLET PO STA (10:27)
[2023-05-22] MEDS ORDERED: HYDROcod/ACETAM 5/325 MG TABLET PO STA (10:27)
[2023-05-22] MEDS ORDERED: NAPROXEN 250 MG TABLET PO STA (10:28)
[2023-05-22] MEDS ORDERED: ALBUTEROL 1 PUFF INH STA (10:29)
--- NOTE | 2023-05-22 10:57 | XRAY Report ---
PROCEDURE: Chest 2 View X-Ray INDICATIONS: cough/congestion TECHNIQUE: 2 views of the chest were acquired. COMPARISON: None. FINDINGS: Surgical changes and devices: CABG and probable right breast lumpectomy.. Lungs and pleura: No pleural effusions or pneumothorax. Lungs are clear. Mediastinum: Mediastinal contours appear normal. Heart size is normal. Bones and chest wall: No suspicious bony lesions. Overlying soft tissues appear unremarkable. IMPRESSION: No acute cardiopulmonary process. Reviewed by: Jose Thorne on 05/22/2023 9:55 AM [facility] Approved by: Jose Thorne on 05/22/2023 9:55 AM [facility] Station ID: [id number]
[2023-05-22] MEDS ORDERED: SODIUM CHLORIDE 0.9% 1,000 ML IV STA (11:29)
[2023-05-22 11:42] LABS: B. PARAPERTUSSIS- RESP PCR PAN NOT DETECTED; B. PERTUSSIS- RESP PCR PANEL NOT DETECTED; C. PNEUMONIAE- RESP PCR PANEL NOT DETECTED; CORONAVIRUS 229E-RESP PCR NOT DETECTED; CORONAVIRUS HKU1-RESP PCR NOT DETECTED; CORONAVIRUS NL63-RESP PCR NOT DETECTED; CORONAVIRUS OC43-RESP PCR NOT DETECTED; HUMAN METAPNEUMOVIRUS NOT DETECTED; INFLUENZA A- RESP PCR PANEL NOT DETECTED; INFLUENZA B - RESP PCR PANEL NOT DETECTED; M. PNEUMONIAE- RESP PCR PANEL NOT DETECTED; PARAINFLUENZA VIRUS 1 NOT DETECTED; PARAINFLUENZA VIRUS 2 NOT DETECTED; PARAINFLUENZA VIRUS 3 NOT DETECTED; PARAINFLUENZA VIRUS 4 NOT DETECTED; RHINOVIRUS/ENTEROVIRUS NOT DETECTED; RSV- RESP PCR PANEL NOT DETECTED; SARS-CoV-2 -RESP PCR PANEL NOT DETECTED
[2023-05-22 11:44] LABS: BASOPHILS % (AUTO) 0.4 %; EOSINOPHILS % (AUTO) 0.1 %; HCT - HEMATOCRIT 38.8 % (37.0-47.0); HGB - HEMOGLOBIN 13.2 g/dL (12.0-16.0); LYMPHOCYTES # (AUTO) 0.8 10^3/uL (1.5-3.5); MEAN CORPUSCULAR VOLUME 88.2 fL (81.0-99.0); MEAN PLATELET VOLUME 8.9 fL (7.9-10.8); MONOCYTES # (AUTO) 0.9 10^3/uL (0.0-1.0); MONOCYTES % (AUTO) 8.1 %; NEUTROPHILS # (AUTO) 9.3 10^3/uL (1.5-6.6); PLT - PLATELET COUNT 278 10^3/uL (130-450); RED CELL DISTRIBUTION WIDTH 12.7 % (12.0-15.0)
[2023-05-22 11:58] LABS: ALBUMIN 4.1 g/dL (3.2-5.5); ALBUMIN/GLOBULIN RATIO 1.7 (1.0-2.2); BILIRUBIN,TOTAL 0.5 mg/dL (0.2-1.0); CALCIUM 9.3 mg/dL (8.5-10.3); CREATININE 0.5 mg/dL (0.6-1.3); MAGNESIUM 1.7 mg/dL (1.7-2.3); POTASSIUM 3.1 mmol/L (3.5-4.5); TOTAL PROTEIN 6.5 g/dL (6.4-8.9)
[2023-05-22] MEDS ORDERED: POTASSIUM BICARB 25 MEQ TABLET PO STA (12:30)
[2023-05-22] MEDS ORDERED: POTASSIUM CHLOR 10 MEQ/100 ML 10 MEQ/100 ML BAG IV ONE (12:30)
[2023-05-22 14:10] VITALS: BP 112/60; O2SAT 96
== END 2023-05-22 14:07 | disposition home or self-care (01) ==
LOC: ED 09:48
DX: B34.9 Viral infection, unspecified (principal); E87.6 Hypokalemia; E87.1 Hypo-osmolality and hyponatremia; I10 Essential (primary) hypertension
CPT/HCPCS: 36415; 71046; 80053; 83690; 83735; 85025; 87633; 94640; 96361; 96365; 99284; A9270; J8540

== ENCOUNTER 2023-08-07 08:00 | Outpatient (CLI) | payer MEDICARE, OTHER ==
[2023-08-07 20:45] LABS: BACTERIAL VAGINOSIS DNA NEGATIVE (NEGATIVE); CANDIDA GLABRATA DNA NEGATIVE (NEGATIVE); CANDIDA GROUP DNA NEGATIVE (NEGATIVE); CANDIDA KRUSEI DNA NEGATIVE (NEGATIVE); TRICHOMONAS VAGINALIS DNA NEGATIVE (NEGATIVE)
== END 2023-08-07 23:59 | disposition home or self-care (01) ==
LOC: LAB.S 08:00
PROVIDERS: ATTEND Physician Assistant Medical
DX: N39.0 Urinary tract infection, site not specified (principal); N89.8 Other specified noninflammatory disorders of vagina; N84.2 Polyp of vagina
CPT/HCPCS: 81514; 87086; 87181

== ENCOUNTER 2023-08-09 15:13 | Outpatient (CLI) | payer MEDICARE, OTHER ==
[2023-08-09 15:30] LABS: HCT - HEMATOCRIT 42.7 % (37.0-47.0); HGB - HEMOGLOBIN 14.3 g/dL (12.0-16.0); MEAN CORPUSCULAR HEMOGLOBIN 30.6 pg (27.0-31.0); MEAN CORPUSCULAR HGB CONC 33.5 g/dL (32.0-36.0); MEAN CORPUSCULAR VOLUME 91.2 fL (81.0-99.0); MEAN PLATELET VOLUME 9.4 fL (7.9-10.8); RED BLOOD COUNT 4.68 10^6/uL (4.20-5.40); RED CELL DISTRIBUTION WIDTH 13.8 % (12.0-15.0); WHITE BLOOD COUNT 5.3 x10^3/uL (4.8-10.8)
== END 2023-08-09 15:14 | disposition home or self-care (01) ==
LOC: LAB 15:13
PROVIDERS: ATTEND Obstetrics & Gynecology
DX: R19.7 Diarrhea, unspecified (principal)
CPT/HCPCS: 36415; 85027

== ENCOUNTER 2023-08-10 13:02 | Outpatient (CLI) | payer MEDICARE, OTHER | END 2023-08-10 13:03 | disposition home or self-care (01) | LOC: LAB.R 13:02 | PROVIDERS: ATTEND Obstetrics & Gynecology | DX: R19.7 Diarrhea, unspecified (principal) | CPT/HCPCS: 83993 ==

== ENCOUNTER 2023-09-06 10:08 | Day surgery (SDC) | payer MEDICARE, OTHER ==
[2023-09-06] MEDS: LACTATED RINGERS 1,000 ML IV ONE (10:31)
[2023-09-06 10:35] VITALS: O2SAT 100
--- NOTE | 2023-09-06 10:59 | ANESTHESIA ---
Pre-Anesthesia VS, & Labs - Diagnosis screening - Procedure colonoscopy Vital Signs: Temp Pulse Resp BP Pulse Ox O2 Flow Rate 36.8 C 77 18 155/75 H 100 09/06/23 10:31 09/06/23 10:31 09/06/23 10:31 09/06/23 10:31 09/06/23 10:31 Height: 4 ft 10.5 in Weight (kg): 47 kg Body Mass Index: 21.2 BMI Classification: Normal - NPO Other (prep as directed) - Is Patient ?: No Home Medications and Allergies Propranolol HCl 40 mg PO BID 11/28/14 Rosuvastatin Calcium [Crestor] 10 mg PO DAILY 08/05/15 ALPRAZolam [Alprazolam] 0.25 mg PO DAILY PRN 07/10/20 Primidone [Mysoline] 50 mg PO DAILY 07/10/20 Sertraline [Zoloft] 100 mg PO DAILY 07/10/20 Cholecalciferol (Vitamin D3) [Vitamin D3] 2,000 mg PO DAILY 07/11/20 Allergies/Adverse Reactions: Allergies Allergy/AdvReac Type Severity Reaction Status Date / Time Sulfa (Sulfonamide Allergy Unknown Verified 05/22/23 09:59 Antibiotics) adhesive AdvReac Mild Unknown Verified 09/06/23 10:40 Iodinated Contrast Media AdvReac Mild Unknown Verified 05/22/23 09:59 Anes History & Medical History - Anesthetic History Anesthesia Complications: reports: No previous complications - Medical History Cardiovascular: reports: Hypertension, High cholesterol, Coronary artery disease Neuro: reports: Other (History of corotid disease) Musculoskeletal: reports: None, Other (TMJ) Smoking Status: Never smoker History of Cancer?: No - Surgical History General: reports: Appendectomy Eyes Ears Nose Throat (EENT): reports: Tonsil/Adenoidectomy Cardiothoracic: reports: CABG Neurologic: reports: Other (left CEA) Orthopedic: reports: Other Exam General: Alert, Oriented x3 Dental: WNL, Other (lower dental device for TMJ, opens well) Mouth Opening: Greater than 4 Fingerbreadths Neck Mobility: Normal Mallampati classification: II Thyromental Distance: greater than 6 cm Respiratory: Lungs clear Cardiovascular: Regular rate Plan Anesthesia Type: Total IV Consent for Procedure(s) Verified and Reviewed: Yes Code Status: Attempt Resuscitation ASA classification: 3-Severe systemic disease Is this case an emergency?: No
[2023-09-06] MEDS ORDERED: PROPOFOL 200 MG/20 ML VIAL IVP ONE (11:04)
[2023-09-06] MEDS ORDERED: ePHEDrine 50 MG/ML VIAL IVP ONE (11:40)
[2023-09-06] MEDS: LACTATED RINGERS 400 ML IV ONE (11:58)
[2023-09-06 12:34] VITALS: BP 133/78
--- NOTE | 2023-09-06 15:14 | ANESTHESIA POST OP EVALUATION ---
Anesthesia Post Eval - Post Anesthesia Eval Vitals: Last Vital Signs Temp 36.9 C 09/06/23 12:26 Pulse 74 09/06/23 12:26 Resp 16 09/06/23 12:26 BP 133/78 H 09/06/23 12:26 Pulse Ox 100 09/06/23 12:26 O2 Flow Rate CV Function Including HR & BP: Stable Pain Control: Satisfactory Nausea & Vomiting: Negative Mental Status: Baseline Respiratory Status: Airway Patent Hydration Status: Satisfactory Anesthesia Complications: None
== END 2023-09-06 10:09 | disposition home or self-care (01) ==
LOC: SDS 10:08
PROVIDERS: ATTEND Surgery
PROC: 0DBL8ZX Excision of Transverse Colon, Via Natural or Artificial Opening Endoscopic, Diagnostic (ICD-10-PCS; principal; 2023-09-06 11:15)
DX: K92.1 Melena (principal); D12.3 Benign neoplasm of transverse colon; K64.2 Third degree hemorrhoids; I10 Essential (primary) hypertension; J44.9 Chronic obstructive pulmonary disease, unspecified; J43.9 Emphysema, unspecified; Z87.891 Personal history of nicotine dependence
CPT/HCPCS: 45380; J7120

== ENCOUNTER 2023-12-07 11:30 | Outpatient (CLI) | payer MEDICARE, OTHER ==
[2023-12-07 12:08] LABS: ALBUMIN 4.7 g/dL (3.2-5.5); ALBUMIN/GLOBULIN RATIO 1.7 (1.0-2.2); ALKALINE PHOSPHATASE 45 IU/L (42-121); ALT ALANINE AMINOTRANSFERASE 42 IU/L (10-60); AST ASPARTATE AMINOTRANSFERASE 34 IU/L (10-42); BILIRUBIN,TOTAL 0.5 mg/dL (0.2-1.0); BUN - BLOOD UREA NITROGEN 14 mg/dL (6-20); CALCIUM 10.1 mg/dL (8.5-10.3); CARBON DIOXIDE - CO2 32 mmol/L (21-32); CHLORIDE 98 mmol/L (101-111); CHOL/HDL RATIO 2.9 (<4.4); CHOLESTEROL 213 mg/dL; CREATININE 0.6 mg/dL (0.6-1.3); GFR - MDRD 97 (>89); GLUCOSE 115 mg/dL (74-104); HDL CHOLESTEROL 73 mg/dL; LDL CHOLESTEROL,CALCULATED 110 mg/dL; LDL/HDL RATIO 1.5 (<4.4); POTASSIUM 4.1 mmol/L (3.5-4.5); SODIUM 135 mmol/L (135-145); TOTAL PROTEIN 7.4 g/dL (6.4-8.9); TRIGLYCERIDES 149 mg/dL (48-352); VLDL CHOLESTEROL 30 mg/dL
[2023-12-07 12:18] LABS: THYROID STIMULATING HORMONE 3.17 uIU/mL (0.34-5.60)
[2023-12-07 13:25] LABS: BASOPHILS # (AUTO) 0.1 10^3/uL (0.0-0.1); EOSINOPHILS # (AUTO) 0.1 10^3/uL (0.0-0.7); EOSINOPHILS % (AUTO) 1.4 %; HCT - HEMATOCRIT 45.4 % (37.0-47.0); HGB - HEMOGLOBIN 15.3 g/dL (12.0-16.0); LYMPHOCYTES # (AUTO) 1.6 10^3/uL (1.5-3.5); LYMPHOCYTES % (AUTO) 30.9 %; MEAN CORPUSCULAR HEMOGLOBIN 30.9 pg (27.0-31.0); MEAN CORPUSCULAR HGB CONC 33.7 g/dL (32.0-36.0); MEAN CORPUSCULAR VOLUME 91.7 fL (81.0-99.0); MEAN PLATELET VOLUME 9.8 fL (7.9-10.8); MONOCYTES # (AUTO) 0.4 10^3/uL (0.0-1.0); MONOCYTES % (AUTO) 8.3 %; NEUTROPHILS % (AUTO) 58.2 %; PLT - PLATELET COUNT 345 10^3/uL (130-450); RED BLOOD COUNT 4.95 10^6/uL (4.20-5.40); RED CELL DISTRIBUTION WIDTH 13.7 % (12.0-15.0); WHITE BLOOD COUNT 5.1 x10^3/uL (4.8-10.8)
[2023-12-07 14:13] LABS: ESTIMATED AVERAGE GLUCOSE 97 mg/dL (70-100)
== END 2023-12-07 11:31 | disposition home or self-care (01) ==
LOC: LAB 11:30
PROVIDERS: ATTEND Family Medicine
DX: I10 Essential (primary) hypertension (principal); F33.1 Major depressive disorder, recurrent, moderate; M26.69 Other specified disorders of temporomandibular joint; R73.01 Impaired fasting glucose; I25.810 Atherosclerosis of coronary artery bypass graft(s) without angina pectoris; M85.80 Other specified disorders of bone density and structure, unspecified site; E78.2 Mixed hyperlipidemia
CPT/HCPCS: 36415; 80053; 80061; 83036; 83721; 84443; 85025

== ENCOUNTER 2024-01-01 08:00 | Outpatient (CLI) | payer MEDICARE, OTHER | END 2024-01-01 23:59 | disposition home or self-care (01) | LOC: LAB.WCP 08:00 | PROVIDERS: ATTEND Physician Assistant | DX: N39.0 Urinary tract infection, site not specified (principal) | CPT/HCPCS: 87086 ==

== ENCOUNTER 2024-01-13 08:00 | Outpatient (CLI) | payer MEDICARE, OTHER | END 2024-01-13 23:59 | disposition home or self-care (01) | LOC: LAB 08:00 | PROVIDERS: ATTEND Emergency Medicine | DX: N39.0 Urinary tract infection, site not specified (principal) | CPT/HCPCS: 87086; 87181 ==